=== PATIENT | female | born 1930 | race Caucasian/White ===

== ENCOUNTER 2016-11-15 00:17 | Emergency (ER) | payer OTHER, MEDICARE ==
[2016-11-15 00:47] VITALS: BMI 32.0
--- NOTE | 2016-11-15 01:01 | PDOC ---
History of Present Illness - General History Source: Patient Exam Limitations: No Limitations - History of Present Illness Initial Comments: 11/15/16 01:23 The patient is a 85 year old female brought via EMS and presenting with her daughter, with a significant past medical history of hypothyroidism, hypertension and right breast CA s/p right lumpectomy, who presents to the emergency department with left knee pain and swelling. The patient notes that she has been having trouble bearing weight due to the leg pain. She denies any kind of fall. She describes her leg pain as moderate, without radiation. She notes that moving the extremity or attempting to bear weight on the extremity exacerbates her pain. The patient denies chest pain, shortness of breath, headache and dizziness. Denies fever, chills, nausea, vomit, diarrhea and constipation. Denies dysuria, frequency, urgency and hematuria. Allergies: Penicillin, isela, peaches Past surgical history: Right lumpectomy Social history: No alcohol, tobacco or drug use reported <Mauricio Crockett - Last Filed: 11/15/16 02:07> <Luiz Shelton - Last Filed: 11/15/16 02:20> <Ora Pressley - Last Filed: 11/15/16 06:52> <Yazmin Luis - Last Filed: 11/15/16 10:34> - General Chief Complaint: Pain, Acute Stated Complaint: PAIN Time Seen by Provider: 11/15/16 00:39 Past History <Mauricio Crockett - Last Filed: 11/15/16 02:07> - Past Medical History Cancer: Yes (BREAST, R LUMPECTOMY) HTN: Yes Thyroid Disease: Yes (hypo) - Psycho/Social/Smoking Cessation Hx Anxiety: No Suicidal Ideation: No Smoking History: Never smoked Have you smoked in the past 12 months: No Information on smoking cessation initiated: No Hx Alcohol Use: No Drug/Substance Use Hx: No Substance Use Type: None <Luiz Shelton - Last Filed: 11/15/16 02:20> <Ora Pressley - Last Filed: 11/15/16 06:52> <Yazmin Luis - Last Filed: 11/15/16 10:34> - Past Medical History Allergies/Adverse Reactions: Allergies Allergy/AdvReac Type Severity Reaction Status Date / Time Penicillins Allergy Verified 11/15/16 00:43 nickel [Nickel] AdvReac Mild Rash Unverified 11/15/16 00:43 peniciliin Allergy Intermediate Uncoded 11/15/16 00:43 Peaches AdvReac Mild redness Uncoded 11/15/16 00:43 Face Home Medications: Ambulatory Orders Acetaminophen [Tylenol Extra Strength] 500 mg PO PRN 11/15/16 Amlodipine Besylate [Norvasc -] 2.5 mg PO DAILY 11/15/16 Levothyroxine [Synthroid -] 100 mcg PO DAILY 11/15/16 Nebivolol HCl [Bystolic] 10 mg DAILY 11/15/16 Review of Systems - Review of Systems Able to Perform ROS?: Yes Comments:: 11/15/16 01:23 CONSTITUTIONAL: No fever, no chills, no fatigue EYES: No visual changes ENT: No ear pain, no sore throat CARDIOVASCULAR: No chest pain, no palpitations RESPIRATORY: No cough, no SOB GI: No abdominal pain, no nausea, no vomiting, no constipation, no diarrhea GENITOURINARY: No dysuria, no frequency, no hematuria EXTREMITIES: (+) Left lower extremity pain and swelling. MUSKULOSKELETAL: No backpain, no joint pain, no myalgias SKIN: No rash NEURO: No headache <Mauricio Crockett - Last Filed: 11/15/16 02:07> *Physical Exam - Vital Signs Last Vital Signs Temp Pulse Resp BP Pulse Ox 98.1 F 72 18 187/72 98 11/15/16 00:43 11/15/16 00:43 11/15/16 00:43 11/15/16 00:43 11/15/16 00:43 <Mauricio Crockett - Last Filed: 11/15/16 02:07> - Vital Signs Last Vital Signs Temp Pulse Resp BP Pulse Ox 98.1 F 72 18 187/72 98 11/15/16 00:43 11/15/16 00:43 11/15/16 00:43 11/15/16 00:43 11/15/16 00:43 - Physical Exam Comments: 11/15/16 02:20 EXAMINATION CONSTITUTIONAL: Well-appearing; well-nourished; in no apparent distress HEAD: Normocephalic; atraumatic EYES: PERRL; EOM intact ENMT: External appears normal; normal oropharynx NECK: Supple; non-tender; no cervical lymphadenopathy CARD: Normal S1, S2; no murmurs, rubs, or gallops RESP: Normal chest excursion with respiration; breath sounds clear and equal bilaterally; no wheezes, rhonchi, or rales ABD: Soft, non-distended; non-tender; no palpable organomegaly, no palpable hernias EXT: Left knee: + There is a large suprapatellar effusion as well as mild effusion to the medial and lateral aspect of the knee joint, with tenderness to palpation along the medial and lateral aspects of the knee joint with no laxity with varus/Valgus; anterior drawers is negative; patient is unable to extend or flex the knee joint due to severe pain; there is normal passive range of motion at the left hip and ankle; distal pulses are intact bilaterally; right lower extremity: There is no soft tissue swelling or bony tenderness to palpation; full range of motion at the right hip, right knee and right ankle; SKIN: Warm, dry, no rash NEURO: No focal neurological deficiencies. <Luiz Shelton - Last Filed: 11/15/16 02:20> - Vital Signs Last Vital Signs Temp Pulse Resp BP Pulse Ox 98.1 F 72 18 187/72 98 11/15/16 00:43 11/15/16 00:43 11/15/16 00:43 11/15/16 00:43 11/15/16 00:43 <Ora Pressley - Last Filed: 11/15/16 06:52> - Vital Signs Last Vital Signs Temp Pulse Resp BP Pulse Ox 97.8 F 68 18 129/79 99 11/15/16 06:51 11/15/16 08:43 11/15/16 08:43 11/15/16 08:43 11/15/16 08:43 <Yazmin Luis - Last Filed: 11/15/16 10:34> ED Treatment Course - LABORATORY CBC & Chemistry Diagram: 11/15/16 01:50 11/15/16 01:50 <Mauricio Crockett - Last Filed: 11/15/16 02:07> - LABORATORY CBC & Chemistry Diagram: 11/15/16 01:50 11/15/16 01:50 <Angy Sheltonis - Last Filed: 11/15/16 02:20> - LABORATORY CBC & Chemistry Diagram: 11/15/16 01:50 11/15/16 01:50 - ADDITIONAL ORDERS Additional order review: Laboratory Results 11/15/16 11/15/16 11/15/16 01:50 01:50 01:50 INR 0.93 Sodium 141 Potassium 4.4 Chloride 105 Carbon Dioxide 26 Anion Gap 10 BUN 22 H Creatinine 0.9 D Creat Clearance w eGFR 59.23 Random Glucose 96 Calcium 9.3 Total Bilirubin 0.4 D AST 15 ALT 18 Alkaline Phosphatase 73 D Total Protein 7.7 Albumin 3.7 Blood Type O POSITIVE Antibody Screen Negative 11/15/16 01:50 RBC 4.47 MCV 89.2 MCHC 33.0 RDW 13.8 MPV 8.1 Neutrophils % 52.1 Lymphocytes % 34.4 Monocytes % 10.2 Eosinophils % 2.4 Basophils % 0.9 - Medications Given in the ED: ED Medications Discontinued Medications Generic Name Dose Route Start Last Admin Trade Name Freq PRN Reason Stop Dose Admin Acetaminophen 1,000 mg 11/15/16 01:16 11/15/16 01:58 Ofirmev Injection - IVPB 11/15/16 01:17 1,000 mg ONCE ONE Administration <Ora Pressley - Last Filed: 11/15/16 06:52> - LABORATORY CBC & Chemistry Diagram: 11/15/16 01:50 11/15/16 01:50 - ADDITIONAL ORDERS Additional order review: Laboratory Results 11/15/16 11/15/16 11/15/16 01:50 01:50 01:50 INR 0.93 Sodium 141 Potassium 4.4 Chloride 105 Carbon Dioxide 26 Anion Gap 10 BUN 22 H Creatinine 0.9 D Creat Clearance w eGFR 59.23 Random Glucose 96 Calcium 9.3 Total Bilirubin 0.4 D AST 15 ALT 18 Alkaline Phosphatase 73 D Total Protein 7.7 Albumin 3.7 Blood Type O POSITIVE Antibody Screen Negative 11/15/16 01:50 RBC 4.47 MCV 89.2 MCHC 33.0 RDW 13.8 MPV 8.1 Neutrophils % 52.1 Lymphocytes % 34.4 Monocytes % 10.2 Eosinophils % 2.4 Basophils % 0.9 - Medications Given in the ED: ED Medications Discontinued Medications Generic Name Dose Route Start Last Admin Trade Name Willy PRN Reason Stop Dose Admin Acetaminophen 1,000 mg 11/15/16 01:16 11/15/16 01:58 Ofirmev Injection - IVPB 11/15/16 01:17 1,000 mg ONCE ONE Administration Ketorolac Tromethamine 30 mg 11/15/16 03:26 11/15/16 03:30 Toradol Injection - IVPUSH 11/15/16 03:27 30 mg ONCE ONE Administration Lorazepam 1 mg 11/15/16 06:18 11/15/16 07:07 Ativan Injection - IVPUSH 11/15/16 06:19 1 mg ONCE ONE Administration <Yazmin Luis - Last Filed: 11/15/16 10:34> Medical Decision Making - Medical Decision Making 11/15/16 02:23 Patient is an elderly female who presents with atraumatic pain and swelling to the left knee, with inability to bear weight on the day of arrival. Physical evaluation reveals large suprapatellar effusion and and smaller medial and lateral effusions. Will obtain left knee x-ray as well as left hip and pelvis x -rays to rule out fracture. We'll administer IV Tylenol. Patient will likely require admission for evaluation of knee derangement and inability to ambulate. <Luiz Shelton - Last Filed: 11/15/16 02:20> - Medical Decision Making 11/15/16 06:52 I received patient on signout. She has left knee pain that has left her unable to ambulate. Knee XR shows some fluid in the knee. No fractures. Pt has warmth at the right knee and pain at the right knee, but no systemic fevers and no cellulitis of the right knee. Pt is awaiting CT scan result. She is also awaiting ultrasound this AM to r/o dennis cyst, DVT. She may require admission for inability to ambulate. Or she will require long term care social worker for placement in a rehab center for knee pain and inability to ambulate. She will be signed out to the day ER team. <Ora Pressley - Last Filed: 11/15/16 06:52> - Medical Decision Making 11/15/16 10:33 MicroBlogged Hospitalist. <Yazmin Luis - Last Filed: 11/15/16 10:34> *DC/Admit/Observation/Transfer - Attestations Scribe Attestion: 11/15/16 01:24 Documentation prepared by Mauricio Crockett, acting as chief medical director for Luiz Shelton MD <Mauricio Crockett - Last Filed: 11/15/16 02:07> - Attestations Physician Attestion: 11/15/16 02:20 The documentation was prepared by the scribe under my direct supervision. I have reviewed the documentation which correctly represents the findings, medical decision-making and critical action taken by me. <Luiz Shelton - Last Filed: 11/15/16 02:20> <Ora Pressley - Last Filed: 11/15/16 06:52> - Attestations Scribe Attestion: 11/15/16 10:33 Documentation prepared by Yazmin Luis, acting as chief medical director for Ora Pressley MD. <Yazmin Luis - Last Filed: 11/15/16 10:34> Diagnosis at time of Disposition: Knee arthropathy, Inability to ambulate due to knee - Discharge Dispostion Condition at time of disposition: Guarded - Referrals Referrals: Lux Parekh MD [Primary Care Provider] -
[2016-11-15] MEDS ORDERED: ACETAMINOPHEN 1000 MG/100 ML VIAL (NON FORMULARY) IVPB ONE (01:16)
[2016-11-15 01:58] LABS: BASOPHIL 0.9 % (0-2.0); EOSINOPHIL 2.4 % (0-4.5); MCH 29.4 pg (25.7-33.7); MEAN CELL VOLUME 89.2 fl (80-96); MEAN PLT VOLUME 8.1 fl (7.5-11.1); NEUTROPHILS 52.1 % (42.8-82.8); PLATELET COUNT 217 K/MM3 (134-434); RDW 13.8 % (11.6-15.6); WHITE BLOOD COUNT 8.2 K/mm3 (4.0-10.0)
[2016-11-15] MEDS ORDERED: ACETAMINOPHEN INJECTION 100 ML IVPB ONE (02:00)
[2016-11-15 02:12] LABS: INR 0.93 (0.82-1.09); PROTHROMBIN TIME (PATIENT) 10.2 SEC (9.98-11.88)
[2016-11-15 02:22] LABS: ALBUMIN 3.7 g/dl (3.4-5.0); BILIRUBIN,TOTAL 0.4 mg/dL (0.2-1.0); CALCIUM 9.3 mg/dL (8.5-10.1); COCKROFT - GAULT 55.182; CREATININE 0.9 mg/dL (0.55-1.02); TOT PROT 7.7 g/dl (6.4-8.2)
[2016-11-15] MEDS ORDERED: KETOROLAC TROMETHAMINE 30 MG/1 ML VIAL IVPUSH ONE ×2 (03:26→12:33)
[2016-11-15] MEDS ORDERED: KETOROLAC TROMETHAMINE 30 MG/1 ML VIAL ONE ×2 (03:27→12:36)
[2016-11-15] MEDS ORDERED: LORAZEPAM CARPU-JECT 2 MG/ML DISP.SYRIN IVPUSH ONE (06:18)
[2016-11-15 06:53] VITALS: TEMP 97.8
[2016-11-15] MEDS ORDERED: LORAZEPAM CARPU-JECT 2 MG/ML DISP.SYRIN ONE (06:56)
--- NOTE | 2016-11-15 11:44 | PDOC ---
*Physical Exam - Vital Signs Last Vital Signs Temp Pulse Resp BP Pulse Ox 97.8 F 68 18 129/79 99 11/15/16 06:51 11/15/16 08:43 11/15/16 08:43 11/15/16 08:43 11/15/16 08:43 ED Treatment Course - LABORATORY CBC & Chemistry Diagram: 11/15/16 01:50 11/15/16 01:50 - ADDITIONAL ORDERS Additional order review: Laboratory Results 11/15/16 11/15/16 11/15/16 01:50 01:50 01:50 INR 0.93 Sodium 141 Potassium 4.4 Chloride 105 Carbon Dioxide 26 Anion Gap 10 BUN 22 H Creatinine 0.9 D Creat Clearance w eGFR 59.23 Random Glucose 96 Calcium 9.3 Total Bilirubin 0.4 D AST 15 ALT 18 Alkaline Phosphatase 73 D Total Protein 7.7 Albumin 3.7 Blood Type O POSITIVE Antibody Screen Negative 11/15/16 01:50 RBC 4.47 MCV 89.2 MCHC 33.0 RDW 13.8 MPV 8.1 Neutrophils % 52.1 Lymphocytes % 34.4 Monocytes % 10.2 Eosinophils % 2.4 Basophils % 0.9 - Medications Given in the ED: ED Medications Discontinued Medications Generic Name Dose Route Start Last Admin Trade Name Geronimoq PRN Reason Stop Dose Admin Acetaminophen 1,000 mg 11/15/16 01:16 11/15/16 01:58 Ofirmev Injection - IVPB 11/15/16 01:17 1,000 mg ONCE ONE Administration Ketorolac Tromethamine 30 mg 11/15/16 03:26 11/15/16 03:30 Toradol Injection - IVPUSH 11/15/16 03:27 30 mg ONCE ONE Administration Lorazepam 1 mg 11/15/16 06:18 11/15/16 07:07 Ativan Injection - IVPUSH 11/15/16 06:19 1 mg ONCE ONE Administration Progress Note - Progress Note Progress Note: This patient was endorsed to me at [address] Alejandra pending results of lower extremity ultrasound, CT scan of the knee and reevaluation. Those studies are all negative for acute traumatic injury or any findings. There is a small cyst in the popliteal fossa. I have spoken with the patient and her daughter and have reevaluated the patient personally this morning. The patient was able to ambulate with some assistance but complained of persistent pain. Social work was called for evaluation for surfaces and possible placement. Addendum: NH placement is not a viable option for the family at this time. The plan is to discharge the patient home with Rx for ibuprofen. Will refer to ortho as outpatient. Return to the ED if S xpersist, worsen or new Sx arise. *DC/Admit/Observation/Transfer Diagnosis at time of Disposition: Knee arthropathy, Inability to ambulate due to knee - Discharge Dispostion Disposition: HOME Condition at time of disposition: Stable Admit: No - Referrals Referrals: Lux Parekh MD [Primary Care Provider] - - Patient Instructions Printed Discharge Instructions: DI for Knee Pain Additional Instructions: You may take ibuprofen 600 mg every 6-8 hours as needed for pain in your knee. He may follow-up with Dr. Elliott (orthopedics)call for an appointment at . Return to the emergency department if your symptoms persist, worsen, or new symptoms arise. - Post Discharge Activity
[2016-11-15 13:55] VITALS: BP 153/69; PULSE 69
== END 2016-11-15 13:55 | disposition home or self-care (01) ==
LOC: JER 00:17
PROC: 3E0333Z Introduction of Anti-inflammatory into Peripheral Vein, Percutaneous Approach (ICD-10-PCS; principal; 2016-11-15)
DX: M13.862 Other specified arthritis, left knee (principal); M25.462 Effusion, left knee; R26.2 Difficulty in walking, not elsewhere classified; I10 Essential (primary) hypertension; E03.9 Hypothyroidism, unspecified; Z85.3 Personal history of malignant neoplasm of breast
CPT/HCPCS: 36415; 73523-TC; 73560-TC-LT; 73700-TC-RT; 80053; 85025; 85610; 86850; 86900; 86901; 93971-TC; 96374; 99283-25

== ENCOUNTER 2016-11-17 12:35 | Observation (INO) | payer OTHER, MEDICARE ==
[2016-11-17 12:56] VITALS: BMI 29.6
--- NOTE | 2016-11-17 13:50 | PDOC ---
History of Present Illness - General Chief Complaint: Pain Stated Complaint: LEFT KNEE PAIN X 1 WK Time Seen by Provider: 11/17/16 12:43 History Source: Patient, Family Exam Limitations: No Limitations - History of Present Illness Initial Comments: 11/17/16 13:47 85-year-old female history of thyroid disorder, hypertension, right breast CA status post right lumpectomy presents with persistent left knee pain. Patient was here on November 13 after potentially twisting her left knee. Was noted to have left knee swelling and pain which in ultrasound, x-ray and CAT scan the knee was obtained. Findings found a joint effusion but no other findings. Patient was discharged. However, patient has been unable to actively or bear weight on the left knee. The patient's daughter is having difficulty caring for the patient. Reports that given the persistent pain and difficulty care, patient came to the ED for further evaluation. Past History - Past Medical History Allergies/Adverse Reactions: Allergies Allergy/AdvReac Type Severity Reaction Status Date / Time Penicillins Allergy Verified 11/17/16 12:43 nickel [Nickel] AdvReac Mild Rash Verified 11/17/16 12:43 peniciliin Allergy Intermediate Uncoded 11/17/16 12:43 Peaches AdvReac Mild redness Uncoded 11/17/16 12:43 Face Home Medications: Ambulatory Orders Acetaminophen [Tylenol Extra Strength] 500 mg PO PRN 11/15/16 Amlodipine Besylate [Norvasc -] 2.5 mg PO DAILY 11/15/16 Levothyroxine [Synthroid -] 100 mcg PO DAILY 11/15/16 Nebivolol HCl [Bystolic] 10 mg DAILY 11/15/16 Cancer: Yes (BREAST, R LUMPECTOMY) HTN: Yes Thyroid Disease: Yes (hypo) - Immunization History Immunization Up to Date: Yes - Psycho/Social/Smoking Cessation Hx Anxiety: No Suicidal Ideation: No Smoking History: Never smoked Have you smoked in the past 12 months: No Hx Alcohol Use: Yes (RARE) Drug/Substance Use Hx: No Substance Use Type: None Review of Systems - Review of Systems Able to Perform ROS?: Yes Comments:: 11/17/16 13:50 GENERAL/CONSTITUTIONAL: No fever, weakness. HEAD, EYES, EARS, NOSE AND THROAT: No change in vision. No ear pain or discharge. No sore throat. CARDIOVASCULAR: No chest pain or shortness of breath. RESPIRATORY: No cough, wheezing, or hemoptysis. GASTROINTESTINAL: No abdominal pain, nausea, vomiting, diarrhea, or decreased PO intolerance. GENITOURINARY: No dysuria, frequency, or change in urination. MUSCULOSKELETAL: +left knee pain and swelling SKIN: No rash NEUROLOGIC: No headache, vertigo, loss of consciousness, or change in strength/ sensation. ENDOCRINE: No increased thirst. No abnormal weight change. HEMATOLOGIC/LYMPHATIC: No anemia, easy bleeding, or history of blood clots. ALLERGIC/IMMUNOLOGIC: No hives or skin allergy. *Physical Exam - Vital Signs Last Vital Signs Temp Pulse Resp BP Pulse Ox 97.9 F 63 16 152/65 95 11/17/16 12:42 11/17/16 12:42 11/17/16 12:42 11/17/16 12:42 11/17/16 12:42 - Physical Exam Comments: 11/17/16 13:50 GENERAL: Awake, alert, and fully oriented, in no acute distress. HEAD: No signs of trauma EYES: PERRLA, EOMI, sclera anicteric, conjunctiva clear ENT: Auricles normal inspection, hearing grossly normal, nares patent, oropharynx clear without exudates. NECK: Normal ROM, supple, no lymphadenopathy, JVD, or masses LUNGS: Breath sounds equal, clear to auscultation bilaterally. No wheezes, and no crackles HEART: Regular rate and rhythm, normal S1 and S2, no murmurs, rubs or gallops ABDOMEN: Soft, nontender, normoactive bowel sounds. No guarding, no rebound. No masses EXTREMITIES: Normal range of motion, no edema. No clubbing or cyanosis. No cords, erythema, or tenderness LLE: 2+ DP pulse. sensation intact throughout. Joint effusion appreciated. Able to flex and extend approx 45 degrees without difficult. Not warm or red to touch. Varus and valgus stress negative. Anterior/Posterior drawer test negative. NEUROLOGICAL: Cranial nerves II through XII grossly intact. Normal speech, normal gait SKIN: Warm, Dry, normal turgor, no rashes or lesions noted. Heart Score/ECG Review #1 ECG reviewed & interpreted by me at: 13:50 11/17/16 15:19 NSR 59, TWI III, avF, TWI V3, no std/karma, QTC 437 msec ED Treatment Course - LABORATORY CBC & Chemistry Diagram: 11/17/16 13:45 11/17/16 13:45 Medical Decision Making - Medical Decision Making 11/17/16 13:52 Vital Signs Temp Pulse Resp BP Pulse Ox 97.9 F 63 16 152/65 95 11/17/16 12:42 11/17/16 12:42 11/17/16 12:42 11/17/16 12:42 11/17/16 12:42 Pt unable to bear weight. Patient will be unable to care at home without support. Will need admission for PT, ortho and possible SNF evaluation. 11/17/16 15:25 CBC, BMP 11/17/16 13:45 11/17/16 13:45 CMP Sodium 138 mmol/L (136-145) 11/17/16 13:45 Potassium 4.6 mmol/L (3.5-5.1) 11/17/16 13:45 Chloride 106 mmol/L (98-107) 11/17/16 13:45 Carbon Dioxide 24 mmol/L (22-28) 11/17/16 13:45 Anion Gap 8 (8-16) 11/17/16 13:45 BUN 20 mg/dl (7-18) H D 11/17/16 13:45 Creatinine 0.8 mg/dl (0.6-1.3) 11/17/16 13:45 Creat Clearance w eGFR > 60 (>60) 11/17/16 13:45 Random Glucose 90 mg/dl (74-106) 11/17/16 13:45 Calcium 9.3 mg/dl (8.4-10.2) 11/17/16 13:45 Total Bilirubin 0.4 mg/dl (0.2-1.0) D 11/17/16 13:45 AST 19 U/L (10-42) 11/17/16 13:45 ALT 12 U/L (10-40) 11/17/16 13:45 Alkaline Phosphatase 49 U/L (32-92) 11/17/16 13:45 Total Protein 7.5 g/dl (6.4-8.3) 11/17/16 13:45 Albumin 3.8 g/dl (3.5-5.0) 11/17/16 13:[address] Parekh. He agrees that the patient needs ortho, and PT evaluation. Case discussed with DR. Ortega. She accepts the patient to med/surg obs to her service. Case discussed in detail with admitting physician including history, physical exam and ancillary studies. Admitting physician has assumed care for the patient, will follow all pending diagnostics and will complete the evaluation and treatment. *DC/Admit/Observation/Transfer Diagnosis at time of Disposition: Inability to ambulate due to knee - Discharge Dispostion Condition at time of disposition: Stable Admit: Yes
[2016-11-17 13:56] LABS: BASOPHIL 1.2 % (0-2.0); EOSINOPHIL 3.6 % (0-4.5); MCH 29.9 pg (25.7-33.7); MCHC 33.9 g/dl (32.0-36.0); MEAN CELL VOLUME 88.3 fl (80-96); MEAN PLT VOLUME 7.9 fl (7.5-11.1); NEUTROPHILS 57.5 % (42.8-82.8); PLATELET COUNT 250 K/MM3 (134-434); RDW 13.3 % (11.6-15.6); WHITE BLOOD COUNT 8.8 K/mm3 (4.0-10.8)
[2016-11-17 15:09] LABS: ALBUMIN 3.8 g/dl (3.5-5.0); ALK PHOS 49 U/L (32-92); ANION GAP 8 (8-16); BILIRUBIN,TOTAL 0.4 mg/dl (0.2-1.0); CALCIUM 9.3 mg/dl (8.4-10.2); CO2 24 mmol/L (22-28); COCKROFT - GAULT 57.4685; CREATININE 0.8 mg/dl (0.6-1.3); GLUCOSE,RANDOM 90 mg/dl (74-106); SGOT/AST 19 U/L (10-42); SGPT/ALT 12 U/L (10-40); TOT PROT 7.5 g/dl (6.4-8.3)
[2016-11-17 16:31] LABS: PH,URINE 5.5 (4.5-8); URINE APPEARANCE Clear; URINE BILIRUBIN Negative (NEGATIVE); URINE BLOOD Trace-intact (NEGATIVE); URINE GLUCOSE (UA) Negative (NEGATIVE); URINE KETONE Trace (NEGATIVE); URINE LEUK ESTERASE Negative (NEGATIVE); URINE NITRITE Negative (NEGATIVE); URINE PROTEIN Negative (NEGATIVE); URINE UROBILINOGEN 0.2 E.U/dl (0.2-1.0)
[2016-11-17 16:45] LABS: URINE COLOR YELLOW
[2016-11-17] MEDS ORDERED: ACETAMINOPHEN 325 MG TABLET (FP) PO PRN (21:37)
[2016-11-17] MEDS ORDERED: ARTIFICIAL TEARS (POLYVINYL ALCOHOL 1.4%) OPTH DROPS OU PRN (21:38)
--- NOTE | 2016-11-17 21:43 | HP ---
CHIEF COMPLAINT: knee pain PCP: Dr. Parekh HISTORY OF PRESENT ILLNESS: This is a 85 year old female with a past medical history of HTN, hypothyroid, R breast CA s/p lumpectomy presented with left knee pain. Pt presented to the ED on 11/15/16 with same complaint. Pt reports she was in her kitchen and went to turn around, twisting her left leg with sudden onset of pain persisting since. Pt underwent L hip/pelvis and knee xrays without fracture. CT left knee without fracture, + suprapatellar effusion. US negative for DVT. Pt has been unable to weight bear since event and daughter unable to manage mother at home. Recent Travel: pt denies PAST MEDICAL HISTORY: HTN hypothyroid R breast CA PAST SURGICAL HISTORY: R breast lumpectomy D&C many years ago Social History: Smokin pack year history when her daughter was small Alcohol: pt denies Drugs: pt denies Family History: mother age 60s with CA, unknown type father age 41 with PNA sister age 41, colon CA brother late 70s, respiratory illness sister age 95, old age Allergies cortisone Allergy (Intermediate, Verified 11/17/16 20:29) Swelling Penicillins Allergy (Verified 11/17/16 12:43) nickel [Nickel] Adverse Reaction (Mild, Verified 11/17/16 12:43) Rash peniciliin Allergy (Intermediate, Uncoded 11/17/16 12:43) Peaches Adverse Reaction (Mild, Uncoded 11/17/16 12:43) redness Face HOME MEDICATIONS: 3 Medication Instructions Recorded Acetaminophen [Tylenol Extra 500 mg PO PRN 11/15/16 Strength] Amlodipine Besylate [Norvasc -] 2.5 mg PO DAILY 11/15/16 Levothyroxine [Synthroid -] 100 mcg PO DAILY 11/15/16 Nebivolol HCl [Bystolic] 10 mg DAILY 11/15/16 REVIEW OF SYSTEMS CONSTITUTIONAL: Absent: fever, chills, diaphoresis, generalized weakness, malaise, loss of appetite, weight change HEENT: Absent: rhinorrhea, nasal congestion, throat pain, throat swelling, difficulty swallowing, mouth swelling, ear pain, eye pain, visual changes CARDIOVASCULAR: Absent: chest pain, syncope, palpitations, irregular heart rate, lightheadedness , peripheral edema RESPIRATORY: Absent: cough, shortness of breath, dyspnea with exertion, orthopnea, wheezing, stridor, hemoptysis GASTROINTESTINAL: Absent: abdominal pain, abdominal distension, nausea, vomiting, diarrhea, constipation, melena, hematochezia GENITOURINARY: Absent: dysuria, frequency, urgency, hesitancy, hematuria, flank pain, genital pain MUSCULOSKELETAL: Present: L knee pain Absent: myalgia, arthralgia, joint swelling, back pain, neck pain SKIN: Absent: rash, itching, pallor HEMATOLOGIC/IMMUNOLOGIC: Absent: easy bleeding, easy bruising, lymphadenopathy, frequent infections ENDOCRINE: Absent: unexplained weight gain, unexplained weight loss, heat intolerance, cold intolerance NEUROLOGIC: Absent: headache, focal weakness or paresthesias, dizziness, unsteady gait, seizure, mental status changes, bladder or bowel incontinence PSYCHIATRIC: Absent: anxiety, depression, suicidal or homicidal ideation, hallucinations. PHYSICAL EXAMINATION Vital Signs - 24 hr 3 11/17/16 11/17/16 11/17/16 12:42 18:23 18:48 Temperature 97.9 F 98.3 F 98.3 F Pulse Rate 63 66 66 Respiratory 16 18 Rate Blood Pressure 152/65 166/50 O2 Sat by Pulse 95 97 Oximetry (%) GENERAL: Awake, alert, and fully oriented, in no acute distress. HEAD: Normal with no signs of trauma. EYES: Pupils equal, round and reactive to light, extraocular movements intact, sclera anicteric, conjunctiva clear. No lid lag. EARS, NOSE, THROAT: Ears normal, nares patent, oropharynx clear without exudates. Moist mucous membranes. NECK: Normal range of motion, supple without lymphadenopathy, JVD, or masses. LUNGS: Breath sounds equal, clear to auscultation bilaterally. No wheezes, and no crackles. No accessory muscle use. HEART: Regular rate and rhythm, normal S1 and S2 without murmur, rub or gallop. ABDOMEN: Soft, nontender, not distended, normoactive bowel sounds, no guarding, no rebound, no masses. No hepatomegaly or splenomegaly. MUSCULOSKELETAL: Normal range of motion at all joints except left knee. No bony deformities or tenderness. No CVA tenderness. Left knee pain with flexion and extension, position of comfort slightly flexed. no pain on pelvis rock, hip flexion. UPPER EXTREMITIES: 2+ pulses, warm, well-perfused. No cyanosis. No clubbing. No peripheral edema. LOWER EXTREMITIES: 2+ pulses, warm, well-perfused. No calf tenderness. No peripheral edema. NEUROLOGICAL: Cranial nerves II-XII intact. Normal speech. Normal gait. PSYCHIATRIC: Cooperative. Good eye contact. Appropriate mood and affect. SKIN: Warm, dry, normal turgor, no rashes or lesions noted, normal capillary refill. Laboratory Results - last 24 hr 3 11/17/16 11/17/16 11/17/16 13:45 13:45 15:55 WBC 8.8 RBC 4.78 Hgb 14.3 Hct 42.2 MCV 88.3 MCHC 33.9 RDW 13.3 Plt Count 250 MPV 7.9 Neutrophils % 57.5 Lymphocytes % 28.8 Monocytes % 8.9 Eosinophils % 3.6 Basophils % 1.2 Sodium 138 Potassium 4.6 Chloride 106 Carbon Dioxide 24 Anion Gap 8 BUN 20 H D Creatinine 0.8 Creat Clearance w eGFR > 60 Random Glucose 90 Calcium 9.3 Total Bilirubin 0.4 D AST 19 ALT 12 Alkaline Phosphatase 49 Total Protein 7.5 Albumin 3.8 Urine Color Yellow Urine Appearance Clear Urine pH 5.5 Ur Specific [place] 1.020 Urine Protein Negative Urine Glucose (UA) Negative Urine Ketones Trace Urine Blood Trace-intact Urine Nitrite Negative Urine Bilirubin Negative Urine Urobilinogen 0.2 e.u/dl Ur Leukocyte Esterase Negative Imagin11/17/16: RAD/CHEST X-RAY PORTABLE* Preadmission Portable chest x-ray AP sitting. Since prior chest x-ray dated 02/12/2009, the cardiac silhouette remains within normal limits in size. Mild perihilar increased lung markings are present. There is moderate elevation of the right hemidiaphragm. Mediastinum and visualized osseous structures appear intact Impression: No significant interval change or acute lung disease is present. 11/15/16: US/DUPLEX VASCUL US-1 LEG HISTORY PROVIDED: Pain and swelling left lower extremity. Real time and doppler evaluation of the left lower extremity demonstrates the following: There is no evidence of deep venous thrombosis within the common, deep and superficial femoral veins, as well as the popliteal and posterior tibial veins. The greater saphenous vein is also patent. These veins are fully compressible, as well. IMPRESSION: No evidence of deep venous thrombosis. 11/15/16: CT/LOWER EXTREMITY CT W/O CONTR History provided: Knee pain. Sequential axial images were obtained through the left knee. Coronal and sagittal reconstructed images were also obtained. There is no evidence of fracture, dislocation or acute bone or joint abnormalities. There are mild degenerative arthritic changes noted with the knee joint well maintained. A small suprapatellar effusion is also noted. IMPRESSION: Mild degenerative arthritis with small suprapatellar effusion. There is no evidence of fracture, dislocation or acute bone or joint abnormalities. 11/15/16: RAD/HIP PELVIS-LEFT Pelvis and left hip: Pain. There is no history of trauma given. An AP view the pelvis and images of the left hip reveal no sign of acute fracture subluxation. The hips appear symmetrical. There is a nonspecific bowel pattern. There are pelvic vascular calcifications. If symptoms persist or there is decreased range of motion then further imaging and orthopedic consultation may be of help. Impression: No acute pathology. 11/15/16: RAD/KNEE 2 POS-LEFT Left knee: Pain. AP and lateral views reveal a small joint effusion, degenerative changes but no sign of fracture or subluxation. Blastic or lytic changes are not seen. If symptoms persist, further imaging may be of help. Impression : Joint effusion. No acute fracture appreciated. ASSESSMENT/PLAN: 85yF with PMH HTN, hypothyroid, R breast CA presented with L knee pain, unable to walk. She is being admitted for further observation. L knee osteoarthritis with severe pain - xray and CT neg for fracture - ortho consult placed - tylenol for pain - PT eval - case management eval for potential placement HTN - cont home medications, monitor BP and adjust accordingly Hypothyroid - cont home synthroid DVT PPX - heparin 5000u TID FEN - tolerating po fluids - repeat BMP - low sodium diet Dispo: Pt currently requires inpatient observation for management of her emergent condition. Visit type - Emergency Visit Emergency Visit: Yes ED Registration Date: 11/17/16 Care time: The patient presented to the Emergency Department on the above date and was hospitalized for further evaluation of their emergent condition. - New Patient This patient is new to me today: Yes Date on this admission: 11/17/16 - Critical Care Critical Care patient: No
[2016-11-17] MEDS: amLODIPine BESYLATE 2.5 MG TABLET (FP) PO SCH (22:24)
[2016-11-18] MEDS: LEVOTHYROXINE NA 100 MCG TABLET (FP) PO SCH (06:23)
--- NOTE | 2016-11-18 09:03 | PN ---
Physical Exam: SUBJECTIVE: Patient seen and examined, reports pain to the left knee upon movement. OBJECTIVE: patient is a 85 year old female with a past medical history of HTN, hypothyroid, R breast CA s/p lumpectomy. patient was admitted from the emergency department to observation for left knee pain and the inability to ambulate. Vital Signs Period Temp Pulse Resp BP Sys/Garcia Pulse Ox Last 24 Hr 97.4 F-99.4 F 63-66 18-20 135-173/50-76 97-98 GENERAL: The patient is awake, alert, and fully oriented, in no acute distress. HEAD: Normal with no signs of trauma. EYES: PERRL, extraocular movements intact, sclera anicteric, conjunctiva clear. No ptosis. ENT: Ears normal, nares patent, oropharynx clear without exudates, moist mucous membranes. NECK: Trachea midline, full range of motion, supple. LUNGS: Breath sounds equal, clear to auscultation bilaterally, no wheezes, no crackles, no accessory muscle use. HEART: Regular rate and rhythm, S1, S2 without murmur, rub or gallop. ABDOMEN: Soft, nontender, nondistended, normoactive bowel sounds, no guarding, no rebound, no hepatosplenomegaly, no masses. EXTREMITIES: 2+ pulses, warm, well-perfused, no edema. multiple varicosities noted LEFT LOWER EXTREMITY: pain upon flexion and extension of left knee, +amanda' s test NEUROLOGICAL: Cranial nerves II through XII grossly intact. Normal speech, gait not observed. PSYCH: Normal mood, normal affect. SKIN: Warm, dry, normal turgor, no rashes or lesions noted Active Medications Generic Name Dose Route Start Last Admin Trade Name Freq PRN Reason Stop Dose Admin Acetaminophen 650 mg 11/17/16 21:37 11/17/16 22:24 Tylenol - PO 650 mg Q6H PRN Administration FEVER OR PAIN Amlodipine Besylate 2.5 mg 11/17/16 22:00 11/17/16 22:24 Norvasc - PO 2.5 mg HS ANAI Administration Artificial Tears 1 drop 11/17/16 21:38 Artificial Tears OU QID PRN DRY EYES Heparin Sodium (Porcine) 5,000 unit 11/18/16 22:00 Heparin - SQ TID ANAI Levothyroxine Sodium 100 mcg 11/18/16 07:00 11/18/16 06:23 Synthroid - PO 100 mcg DAILY@0700 ANAI Administration Methyl Salicylate 1 applic 11/18/16 10:00 Andrzej-Rivas - TP BID ANAI Nebivolol 10 mg 11/18/16 10:00 Bystolic - PO DAILY ANAI IMAGING 11/15/16: US/DUPLEX VASCUL US-1 LEG HISTORY PROVIDED: IMPRESSION: No evidence of deep venous thrombosis. 11/15/16: CT/LOWER EXTREMITY CT W/O CONTR IMPRESSION: Mild degenerative arthritis with small suprapatellar effusion. There is no evidence of fracture, dislocation or acute bone or joint abnormalities. 11/15/16: RAD/HIP PELVIS-LEFT Pelvis and left hip: Impression: No acute pathology. 11/15/16: RAD/KNEE 2 POS-LEFT Left knee: Impression : Joint effusion. No acute fracture appreciated. 11/17/16: RAD/CHEST X-RAY PORTABLE* Impression: No significant interval change or acute lung disease is present. ASSESSMENT/PLAN: 1)L knee osteoarthritis with severe pain - pending ortho consult - pt eval - continue prn tylenol 2) HTN - continue norvasc, home dose - b/p at goal 3) Hypothyroid - continue synthroid F/E/N - low sodium diet - replete lytes prn PPX - heparin sq tid - pt eval - scd/cooper Dispo: Pt currently requires inpatient observation for management of her emergent condition. Visit type - Emergency Visit Emergency Visit: Yes ED Registration Date: 11/17/16 Care time: The patient presented to the Emergency Department on the above date and was hospitalized for further evaluation of their emergent condition. - New Patient This patient is new to me today: Yes Date on this admission: 11/18/16 - Critical Care Critical Care patient: No - Discharge Referral Referred to [facility] Med P.C.: No
--- NOTE | 2016-11-18 09:04 | EKG ---
Test Reason : Blood Pressure : / mmHG Vent. Rate : 059 BPM Atrial Rate : 059 BPM P-R Int : 172 ms QRS Dur : 084 ms QT Int : 442 ms P-R-T Axes : 022 -13 -21 degrees QTc Int : 437 ms SINUS BRADYCARDIA CANNOT RULE OUT ANTERIOR INFARCT , AGE UNDETERMINED NONSPECIFIC T WAVE ABNORMALITY WHEN COMPARED WITH ECG OF 12-FEB-2007 07:34, T WAVE INVERSION NOW EVIDENT IN INFERIOR LEADS T WAVE INVERSION NO LONGER EVIDENT IN ANTERIOR LEADS QT HAS SHORTENED Confirmed by MD ARLENE, IZAIAH ([id number]) on 11/18/2016 9:04:32 AM Referred By: JORDAN Confirmed By:IZAIAH JACOBS MD
[2016-11-18] MEDS ORDERED: PT OWN MED DRAWER 7, Y5N ONE ×2 (09:19→21:09)
[2016-11-18] MEDS: METHYL SALICYLATE/MENTHOL OINT 30 GM TUBE TP SCH ×2 (09:25→21:21)
[2016-11-18] MEDS ORDERED: amLODIPine BESYLATE 2.5 MG TABLET (FP) PO SCH (10:00)
[2016-11-18] MEDS: NEBIVOLOL 10 MG TABLET (FP) PO SCH (10:00)
[2016-11-18] MEDS ORDERED: KETOROLAC TROMETHAMINE 30 MG/1 ML VIAL IVPB ONE (11:41)
--- NOTE | 2016-11-18 11:50 | CONSULT ---
Consult Reason for Consultation:: Left knee - History of Present Illness Chief Complaint: Left knee pain 1 month History of Present Illness: 85-year-old female complains of left knee pain for approximately 1 month. She states over the past few weeks this pain is worse and a few days ago she twisted the knee and was having a lot of pain and can barely walk. she went to the emergency room and had x-rays and CAT scan of the knee and was feeling better and was discharged home. She is feeling a little better the past few days but the pain got worse again yesterday and she went back to the emergency room and was admitted. Today the knee is feeling a little better and she was able to walk the hallway and back with a walker and help of the physical therapist. She did have a similar problem with right knee a few years ago which eventually resolved after a few weeks. She has not been taking any anti- inflammatories for the knee.There are no other associated, aggravating or relieving factors. - History Source History Provided By: Patient, Family Member, Medical Record Limitations to Obtaining History: No Limitations - Past Medical History Cardio/Vascular: Yes: HTN, Hyperlipdemia Gastrointestinal: Yes: Other (Dysphagia, being worked up by GI.) ...: No Musculoskeletal: Yes: Osteoarthritis Endocrine: Yes: Hypothyroidism - Past Surgical History Past Surgical History: Yes: Breast Biopsy (History of right breast carcinome in 1995 treated with lumpectomy, radiotherapy and Tamoxiphen) - Alcohol/Substance Use Hx Alcohol Use: Yes (RARE) - Smoking History Smoking history: Never smoked Have you smoked in the past 12 months: No - Social History ADL: Independent History of Recent Travel: No Home Medications - Allergies Allergies/Adverse Reactions: Allergies Allergy/AdvReac Type Severity Reaction Status Date / Time cortisone Allergy Intermediate Swelling Verified 11/17/16 20:29 Penicillins Allergy Verified 11/17/16 12:43 nickel [Nickel] AdvReac Mild Rash Verified 11/17/16 12:43 peniciliin Allergy Intermediate Uncoded 11/17/16 12:43 Peaches AdvReac Mild redness Uncoded 11/17/16 12:43 Face - Home Medications Home Medications: Ambulatory Orders Acetaminophen [Tylenol Extra Strength] 500 mg PO PRN 11/15/16 Amlodipine Besylate [Norvasc -] 2.5 mg PO DAILY 11/15/16 Levothyroxine [Synthroid -] 100 mcg PO DAILY 11/15/16 Nebivolol HCl [Bystolic] 10 mg DAILY 11/15/16 Family Disease History - Family Disease History Family Disease History: Diabetes: Brother, CA: Sister (Colon cancer) Review of Systems - Review of Systems Constitutional: reports: No Symptoms Eyes: reports: No Symptoms HENT: reports: No Symptoms Neck: reports: No Symptoms Cardiovascular: reports: No Symptoms Respiratory: reports: No Symptoms Gastrointestinal: reports: No Symptoms Genitourinary: reports: No Symptoms Breasts: reports: No Symptoms Reported Musculoskeletal: reports: No Symptoms Integumentary: reports: No Symptoms Neurological: reports: No Symptoms Endocrine: reports: No Symptoms Hematology/Lymphatic: reports: No Symptoms Psychiatric: reports: No Symptoms Physical Exam Vital Signs: Vital Signs Temperature 99.4 F 11/18/16 06:00 Pulse Rate 63 11/18/16 06:00 Respiratory Rate 20 11/18/16 06:00 Blood Pressure 135/76 11/18/16 06:00 O2 Sat by Pulse Oximetry (%) 98 11/18/16 06:00 Constitutional: Yes: Well Nourished, No Distress, Calm HENT: Yes: Atraumatic, Normocephalic Musculoskeletal: Yes: Other (Left knee: No open wounds. Moderate joint effusion. No erythema or ecchymosis. Mild diffuse tenderness over the medial lateral joint spaces. No other areas of tenderness. Range of motion of the knee is 10 to 90. quadriceps is intact. Calf nontender. Negative Homans sign. Compartments soft.) Imaging - Results X-ray: Report Reviewed, Image Reviewed Cat Scan: Report Reviewed, Image Reviewed (Severe degenerative changes. No fractures or dislocations) Assessment/Plan #1 left knee pain Discussed today's findings and treatment options with the patient. The knee is feeling a little better today and I recommended starting a course of oral anti- inflammatories as well as a supportive wrap for the knee. I have recommended an NSAID with an antacid to minimize gastric irritation. We have discussed the possibility of doing a cortisone injection but she would like to hold off for now. Follow-up with Dr. Barreto/Dr. Weinberg in 1 week as outpatient. She will also rest and ice the knee.
[2016-11-18] MEDS: RANITIDINE HCL 150 MG TABLET (FP) PO SCH ×2 (12:45→21:20)
[2016-11-18] MEDS: NAPROXEN 500 MG TABLET (FP) PO SCH (21:20)
[2016-11-18] MEDS: HEPARIN NA (PORCINE) 5,000 UNITS/ML 1ML VIAL SQ SCH (21:20)
[2016-11-18] MEDS: amLODIPine BESYLATE 2.5 MG TABLET (FP) PO SCH (21:21)
[2016-11-19] MEDS: LEVOTHYROXINE NA 100 MCG TABLET (FP) PO SCH (06:42)
[2016-11-19] MEDS: HEPARIN NA (PORCINE) 5,000 UNITS/ML 1ML VIAL SQ SCH (06:42)
--- NOTE | 2016-11-19 09:24 | DS ---
Physical Exam: SUBJECTIVE: Patient seen and examined, patient reports feeling better, reports pain improved after starting naproxyn. OBJECTIVE: patient is a 85 year old female with a past medical history of HTN, hypothyroid, R breast CA s/p lumpectomy presented with left knee pain. Pt presented to the ED on 11/15/16 with same complaint. Pt reports she was in her kitchen and went to turn around, twisting her left leg with sudden onset of pain persisting since. Pt underwent L hip/pelvis and knee xrays without fracture. CT left knee without fracture, + suprapatellar effusion. US negative for DVT. Pt has been unable to weight bear since event and daughter unable to manage mother at home. Vital Signs Period Temp Pulse Resp BP Sys/Garcia Pulse Ox Last 24 Hr 97.6 F-98.8 F 60-64 16-19 127-158/59-63 97-98 PHYSICAL EXAM GENERAL: The patient is awake, alert, and fully oriented, in no acute distress. HEAD: Normal with no signs of trauma. EYES: PERRL, extraocular movements intact, sclera anicteric, conjunctiva clear. No ptosis. ENT: Ears normal, nares patent, oropharynx clear without exudates, moist mucous membranes. NECK: Trachea midline, full range of motion, supple. LUNGS: Breath sounds equal, clear to auscultation bilaterally, no wheezes, no crackles, no accessory muscle use. HEART: Regular rate and rhythm, S1, S2 without murmur, rub or gallop. ABDOMEN: Soft, nontender, nondistended, normoactive bowel sounds, no guarding, no rebound, no hepatosplenomegaly, no masses. EXTREMITIES: 2+ pulses, warm, well-perfused, no edema. multiple varicosities noted LEFT LOWER EXTREMITY: pain upon flexion and extension of left knee, +amanda' s test NEUROLOGICAL: Cranial nerves II through XII grossly intact. Normal speech, gait not observed. PSYCH: Normal mood, normal affect. SKIN: Warm, dry, normal turgor, no rashes or lesions noted LABS CBC WBC 8.8 K/mm3 (4.0-10.8) 11/17/16 13:45 RBC 4.78 M/mm3 (3.60-5.2) 11/17/16 13:45 Hgb 14.3 GM/dl (10.7-15.3) 11/17/16 13:45 Hct 42.2 % (32.4-45.2) 11/17/16 13:45 MCV 88.3 fl (80-96) 11/17/16 13:45 MCHC 33.9 g/dl (32.0-36.0) 11/17/16 13:45 RDW 13.3 % (11.6-15.6) 11/17/16 13:45 Plt Count 250 K/MM3 (134-434) 11/17/16 13:45 MPV 7.9 fl (7.5-11.1) 11/17/16 13:45 Neutrophils % 57.5 % (42.8-82.8) 11/17/16 13:45 Lymphocytes % 28.8 % (8-40) 11/17/16 13:45 Monocytes % 8.9 % (3.8-10.2) 11/17/16 13:45 Eosinophils % 3.6 % (0-4.5) 11/17/16 13:45 Basophils % 1.2 % (0-2.0) 11/17/16 13:45 CMP Sodium 138 mmol/L (136-145) 11/17/16 13:45 Potassium 4.6 mmol/L (3.5-5.1) 11/17/16 13:45 Chloride 106 mmol/L (98-107) 11/17/16 13:45 Carbon Dioxide 24 mmol/L (22-28) 11/17/16 13:45 Anion Gap 8 (8-16) 11/17/16 13:45 BUN 20 mg/dl (7-18) H D 11/17/16 13:45 Creatinine 0.8 mg/dl (0.6-1.3) 11/17/16 13:45 Creat Clearance w eGFR > 60 (>60) 11/17/16 13:45 Random Glucose 90 mg/dl (74-106) 11/17/16 13:45 Calcium 9.3 mg/dl (8.4-10.2) 11/17/16 13:45 Total Bilirubin 0.4 mg/dl (0.2-1.0) D 11/17/16 13:45 AST 19 U/L (10-42) 11/17/16 13:45 ALT 12 U/L (10-40) 11/17/16 13:45 Alkaline Phosphatase 49 U/L (32-92) 11/17/16 13:45 Total Protein 7.5 g/dl (6.4-8.3) 11/17/16 13:45 Albumin 3.8 g/dl (3.5-5.0) 11/17/16 13:45 IMAGING 11/15/16: US/DUPLEX VASCUL US-1 LEG HISTORY PROVIDED: IMPRESSION: No evidence of deep venous thrombosis. 11/15/16: CT/LOWER EXTREMITY CT W/O CONTR IMPRESSION: Mild degenerative arthritis with small suprapatellar effusion. There is no evidence of fracture, dislocation or acute bone or joint abnormalities. 11/15/16: RAD/HIP PELVIS-LEFT Pelvis and left hip: Impression: No acute pathology. 11/15/16: RAD/KNEE 2 POS-LEFT Left knee: Impression : Joint effusion. No acute fracture appreciated. 11/17/16: RAD/CHEST X-RAY PORTABLE* Impression: No significant interval change or acute lung disease is present. HOSPITAL COURSE: patient was admitted from the emergency department for left knee osteoarthritis with severe pain. She was evaluated by orthopedist. patient did decline cortisone injection. She was started on NSAIDS as per the recommendation of the orthopedist. Patient was evaluated by physical therapy, patient can ambulate with the assistance of a rolling walker and one person. patient has a past medical history of hypertension and norvasc was continued home dose. She has a past medical history of hypothyroidism and synthroid was continued at home dose. Date of Admission:11/17/16 Date of Discharge: 11/19/16 Minutes to complete discharge: 45 Discharge Summary Reason For Visit: LEFT KNEE PAIN Current Active Problems Advanced directives, counseling/discussion (Acute) Constipation (Acute) DVT prophylaxis (Acute) Dysphagia (Acute) Hypertension (Acute) Hypothyroidism (Acute) Inability to ambulate due to knee (Acute) Osteoarthritis (Acute) Polymyalgia rheumatica (Acute) Condition: Improved - Instructions Diet, Activity, Other Instructions: resume regular low sodium diet continue naporxyn for pain as needed please take naproxyn with food continue taking zantac while taking naproxyn continue all medications as prescribed use merissa bandage to left knee, while awake please follow up with the orthopedist within 1 week Referrals: Lux Parekh MD [Primary Care Provider] - Disposition: VNS/HOME HEALTH CARE - Home Medications Comprehensive Discharge Medication List: Ambulatory Orders Acetaminophen [Tylenol Extra Strength] 500 mg PO PRN 11/15/16 Amlodipine Besylate [Norvasc -] 2.5 mg PO DAILY 11/15/16 Levothyroxine [Synthroid -] 100 mcg PO DAILY 11/15/16 Nebivolol HCl [Bystolic] 10 mg DAILY 11/15/16 This patient is new to me today: No Emergency Visit: Yes ED Registration Date: 11/17/16 Care time: The patient presented to the Emergency Department on the above date and was hospitalized for further evaluation of their emergent condition. Critical Care patient: No - Discharge Referral Referred to [facility] Med P.C.: Yes Physician Referral: Lux Parekh MD (Int Med)
[2016-11-19 09:55] VITALS: BP 155/57; PULSE 66; TEMP 98.9
[2016-11-19] MEDS ORDERED: PT OWN MED DRAWER 7, Y5N ONE (09:59)
[2016-11-19] MEDS: NEBIVOLOL 10 MG TABLET (FP) PO SCH (10:07)
[2016-11-19] MEDS: RANITIDINE HCL 150 MG TABLET (FP) PO SCH (10:07)
[2016-11-19] MEDS: METHYL SALICYLATE/MENTHOL OINT 30 GM TUBE TP SCH (10:07)
[2016-11-19] MEDS: NAPROXEN 500 MG TABLET (FP) PO SCH (10:07)
== END 2016-11-19 13:01 | disposition home health service (06) ==
LOC: FER 12:35 → FM/S 17:22
PROVIDERS: ADMIT Internal Medicine; ATTEND Nurse Practitioner Family
PROC: 3E0333Z Introduction of Anti-inflammatory into Peripheral Vein, Percutaneous Approach (ICD-10-PCS; principal; 2016-11-17)
PROC: 3E013GC Introduction of Other Therapeutic Substance into Subcutaneous Tissue, Percutaneous Approach (ICD-10-PCS; 2016-11-17)
DX: M17.12 Unilateral primary osteoarthritis, left knee (principal); R26.2 Difficulty in walking, not elsewhere classified; K57.00 Diverticulitis of small intestine with perforation and abscess without bleeding; R13.10 Dysphagia, unspecified; I10 Essential (primary) hypertension; E03.9 Hypothyroidism, unspecified; Z85.3 Personal history of malignant neoplasm of breast; M35.3 Polymyalgia rheumatica
CPT/HCPCS: 36415; 71010-TC; 80053; 81003; 85025; 87086; 93005; 97116-GP; 97162-GP; 99283-25; G0378; J1644

== ENCOUNTER 2018-06-15 15:27 | Inpatient (IN) | payer OTHER, MEDICARE ==
--- NOTE | 2018-06-15 16:06 | PDOC ---
Attending Attestation - Resident Resident Name: Brandon Hewitt - ED Attending Attestation I have performed the following: I have examined & evaluated the patient, The case was reviewed & discussed with the resident, I agree w/resident's findings & plan, Exceptions are as noted - HPI HPI: 06/15/18 16:43 87y F hx of hypothyroidism, hypertension presents with possible syncope. The patients states she woke up feeling fine this morning, sometime after 1pm (when her doughter left) she started feeling genearlized weakenss. she somehow ended up on the floor - does not recall specifically if she laid down. denies any associated cp, palpitations, ligheahdedess, cough, sob, hemoptysis,, increased leg swelling,a bd pain, back pain. She called EMS herself who sent her to the ED. pt thinks she was down approx 1 hr but is uncertain. currently she is endorsing a mild headche, also endorses slight R arm discomfort. USOH this mrara, ambulating to the restroom, felt like she was going to fall so she sat down slowly denies any lightheadedness, vertigo, cp, sob, palpitations, n/v, nmnbess/ tingling/weakness. f/c, cough, diarrhea, melena/bpr, pt notse mild headache PMD Fader - Physicial Exam PE: 06/15/18 18:00 GENERAL: The patient is awake, alert, and fully oriented, Nontoxic - in no acute distress. HEAD: Normocephalic, atraumatic. EYES: extraocular movements intact, sclera anicteric, conjunctiva clear. ENT: Normal voice, Moist mucous membranes. NECK: Normal range of motion, supple LUNGS: Breath sounds equal, clear to auscultation bilaterally. No wheezes, no rhonchi, no rales. HEART: Regular rate and rhythm, normal S1 and S2 without murmur, rub or gallop. ABDOMEN: Soft, nontender No guarding, no rebound. . No CVA tenderness EXTREMITIES: Normal range of motion of UE, LE b/l LE edema, no calf tendernses, neg homns BACK: No focal mildine tenderness to cervical/thoracic/lumbar spine NEUROLOGICAL: No facial assymetry, Normal speech, PSYCH: Normal mood, normal affect. SKIN: Warm, Dry, normal turgor, - Critical Care Time Total Critical Care Time: 35 Critical Care Statement: The care of this patient involved high complexity decision making to prevent further life threatening deterioration of the patient 's condition and/or to evaluate & treat vital organ system(s) failure or risk of failure. - Medical Decision Making 06/15/18 18:00 possible syncope - no other symtmos ddx - anemia,metabolic denargmeent, atypical acs will obtain labs, ct head, ekg labs noted for trop of 1.13 - no st changes on ekg NSTEMI - will admit for furrhter mangaement will start heparin case dw Dr. Wilkes - agree with telemetry will transfer the pt to [facility] in light of positive troponin Case discussed in detail with admitting physician including history, physical exam and ancillary studies. Admitting physician has assumed care for the patient, will follow all pending diagnostics and will complete the evaluation and treatment. Heart Score/ECG Review - ECG Impressions Comment:: 06/15/18 18:01 Twelve-lead EKG was performed and reviewed by me. There is normal sinus rhythm with a normal rate. The axis is normal. The intervals are normal. There is normal R wave progression There are no ST or T wave abnormalities. Impression: Normal twelve-lead EKG
[2018-06-15 16:22] LABS: PH,URINE 6.5 (4.5-8); URINE APPEARANCE Clear; URINE BILIRUBIN Negative (NEGATIVE); URINE COLOR Yellow; URINE GLUCOSE (UA) Negative (NEGATIVE); URINE KETONE Negative (NEGATIVE); URINE LEUK ESTERASE Negative (NEGATIVE); URINE NITRITE Negative (NEGATIVE); URINE PROTEIN Negative (NEGATIVE); URINE UROBILINOGEN 0.2 (0.2-1.0)
--- NOTE | 2018-06-15 16:23 | PDOC ---
History of Present Illness <John Mistry - Last Filed: 06/15/18 18:02> - General History Source: Patient Exam Limitations: No Limitations - History of Present Illness Initial Comments: 06/15/18 16:23 The patient is an 87F with a PMH of hypothyroidism, hypertension and right breast CA s/p right lumpectomy who presents to the ER with complaints of "feeling like she was going to fall". The patient states that she was in her normal state of health today and was ambulating to the bathroom without her walker. She began to develop a sensation that she was going to fall and slowly lowered herself to the ground. She denies head trauma and LOC. She also denies lightheadedness, room spinning sensation, CP, SOB, palpitations, nausea, vomiting, numbness, tingling, and weakness. <Brandon Hewitt - Last Filed: 06/15/18 19:05> - General Chief Complaint: Syncope/Near Syncope Stated Complaint: syncope,fall Time Seen by Provider: 06/15/18 15:36 Past History <John Mistry - Last Filed: 06/15/18 18:02> - Past Medical History Anemia: Yes Asthma: No Cancer: Yes (BREAST, R LUMPECTOMY) Cardiac Disorders: No CVA: No COPD: No CHF: No Dementia: No Diabetes: No GI Disorders: No Disorders: Yes (OBS) HTN: Yes Hypercholesterolemia: No Liver Disease: No Seizures: No Thyroid Disease: Yes (hypo) - Surgical History Abdominal Surgery: No Cardiac Surgery: No Neurologic Surgery: No Orthopedic Surgery: No - Immunization History Immunization Up to Date: Yes - Suicide/Smoking/Psychosocial Hx Smoking History: Never smoked Have you smoked in the past 12 months: No Hx Alcohol Use: Yes (RARE) Drug/Substance Use Hx: No Substance Use Type: None <Brandon Hewitt - Last Filed: 06/15/18 19:05> - Past Medical History Allergies/Adverse Reactions: Allergies Allergy/AdvReac Type Severity Reaction Status Date / Time cortisone Allergy Intermediate Swelling Verified 06/15/18 15:28 Penicillins Allergy Verified 06/15/18 15:28 nickel [Nickel] AdvReac Mild Rash Verified 06/15/18 15:28 peniciliin Allergy Intermediate Uncoded 11/17/16 12:43 Peaches AdvReac Mild redness Uncoded 11/17/16 12:43 Face Home Medications: Ambulatory Orders Acetaminophen [Tylenol Extra Strength] 500 mg PO PRN 11/15/16 Amlodipine Besylate [Norvasc -] 2.5 mg PO DAILY 11/15/16 Levothyroxine [Synthroid -] 100 mcg PO DAILY 11/15/16 Nebivolol HCl [Bystolic] 10 mg DAILY 11/15/16 Methyl Salicylate/Menthol Oint [Analgesic [place] -] 1 applic TP BID #30 applic 04/28 Review of Systems - Review of Systems Able to Perform ROS?: Yes Comments:: 06/15/18 16:31 GENERAL/CONSTITUTIONAL: Positive for sensation of falling. No fever or chills. No weakness. HEAD, EYES, EARS, NOSE AND THROAT: No change in vision. No ear pain or discharge. No sore throat. CARDIOVASCULAR: No chest pain, palpitations, or lightheadedness. RESPIRATORY: No cough, wheezing, shortness of breath, or hemoptysis. GASTROINTESTINAL: No nausea, vomiting, diarrhea, constipation, or abdominal pain. GENITOURINARY: No dysuria, frequency, hematuria, or change in urination. MUSCULOSKELETAL: No joint or muscle swelling or pain. No neck or back pain. SKIN: No rash or lesions. NEUROLOGIC: No headache, numbness, tingling, focal weakness, loss of consciousness, or change in strength/sensation. ENDOCRINE: No increased thirst. No abnormal weight change. HEMATOLOGIC/LYMPHATIC: No anemia, easy bleeding, or history of blood clots. ALLERGIC/IMMUNOLOGIC: No hives or skin allergy. Is the patient limited Serbian proficient: No <Brandon Hewitt - Last Filed: 06/15/18 19:05> *Physical Exam - Vital Signs Last Vital Signs Temp Pulse Resp BP Pulse Ox 97.7 F 73 16 156/80 97 06/15/18 15:27 06/15/18 15:27 06/15/18 15:27 06/15/18 15:27 06/15/18 15:27 <John Mistry - Last Filed: 06/15/18 18:02> - Vital Signs Last Vital Signs Temp Pulse Resp BP Pulse Ox 97.7 F 73 16 156/80 97 06/15/18 15:27 06/15/18 15:27 06/15/18 15:27 06/15/18 15:27 06/15/18 15:27 - Physical Exam Comments: 06/15/18 16:31 GENERAL: Well developed, well nourished. Awake and alert. No acute distress. HEENT: Normocephalic, atraumatic. Hearing grossly normal. Moist mucous membranes. PERRLA, EOMI. No conjunctival pallor. Sclera are non-icteric. Oropharynx is clear. NECK: Supple. Full ROM. No JVD. CARDIOVASCULAR: Regular rate and rhythm. No murmurs, rubs, or gallops. PULMONARY: No evidence of respiratory distress. Lungs clear to auscultation bilaterally. No wheezing, rales or rhonchi. ABDOMINAL: Soft. Non-tender. Non-distended. No rebound or guarding. GENITOURINARY: No CVA tenderness bilaterally. MUSCULOSKELETAL: Normal range of motion at all joints. No bony deformities or tenderness. EXTREMITIES: No cyanosis. No clubbing. No edema. No calf tenderness or swelling. SKIN: Warm and dry. Normal capillary refill. No rashes. No jaundice. NEUROLOGICAL: Alert, awake, appropriate. Cranial nerves 2-12 intact. No deficits to light touch and temperature in face, upper extremities and lower extremities. 5/5 strength in deltoids, biceps, triceps, quadriceps, hamstrings, and gastrocnemius. Finger to nose normal bilaterally. Normal speech. Gait is normal without ataxia. PSYCHIATRIC: Cooperative. Good eye contact. Appropriate mood and affect. <Brandon Hewitt - Last Filed: 06/15/18 19:05> Moderate Sedation - Procedure Monitoring Vital Signs: Procedure Monitoring Vital Signs Temperature 97.7 F 06/15/18 15:27 Pulse Rate 73 06/15/18 15:27 Respiratory Rate 16 06/15/18 15:27 Blood Pressure 156/80 06/15/18 15:27 O2 Sat by Pulse Oximetry (%) 97 06/15/18 15:27 <John Misrty - Last Filed: 06/15/18 18:02> - Procedure Monitoring Vital Signs: Procedure Monitoring Vital Signs Temperature 97.7 F 06/15/18 15:27 Pulse Rate 73 06/15/18 15:27 Respiratory Rate 16 06/15/18 15:27 Blood Pressure 156/80 06/15/18 15:27 O2 Sat by Pulse Oximetry (%) 97 06/15/18 15:27 <Brandon Hewitt - Last Filed: 06/15/18 19:05> Heart Score/ECG Review #1 General ECG Interpretation: Sinus Rhythm, Normal Rate, Normal Intervals, No acute ischemic changes Compared to previous ECG there are: No significant change 06/15/18 17:16 NSR vent rate 70 DE 174 QRS 88 QTc 462 No STD or MATHEUS No signs of acute ischemia Unchanged from prior <MarcelinaBrandon - Last Filed: 06/15/18 19:05> ED Treatment Course - LABORATORY CBC & Chemistry Diagram: 06/15/18 15:55 06/15/18 15:55 - ADDITIONAL ORDERS Additional order review: Laboratory Results 06/15/18 06/15/18 06/15/18 16:25 16:04 15:55 PT with INR 11.5 INR 1.03 Sodium Potassium Chloride Carbon Dioxide Anion Gap BUN Creatinine Creat Clearance w eGFR Random Glucose Calcium Total Bilirubin AST ALT Alkaline Phosphatase Creatine Kinase 287 H Creatine Kinase Index 1.6 CK-MB (CK-2) 4.6 H Troponin I Total Protein Albumin Urine Color Yellow Urine Appearance Clear Urine pH 6.5 Ur Specific [place] 1.020 Urine Protein Negative Urine Glucose (UA) Negative Urine Ketones Negative Urine Blood Trace-lysed H Urine Nitrite Negative Urine Bilirubin Negative Urine Urobilinogen 0.2 Ur Leukocyte Esterase Negative Urine RBC 2-5 Urine WBC 0-2 Ur Epithelial Cells 1+ Urine Bacteria 1+ 06/15/18 06/15/18 15:55 15:55 PT with INR INR Sodium 133 L Potassium 4.1 D Chloride 103 Carbon Dioxide 24 Anion Gap 6 L BUN 20 H Creatinine 0.8 Creat Clearance w eGFR > 60 Random Glucose 99 Calcium 9.0 Total Bilirubin 0.7 AST 23 D ALT 14 Alkaline Phosphatase 59 Creatine Kinase Cancelled Creatine Kinase Index CK-MB (CK-2) Troponin I 1.13 H* Cancelled Total Protein 7.6 Albumin 3.9 Urine Color Urine Appearance Urine pH Ur Specific [place] Urine Protein Urine Glucose (UA) Urine Ketones Urine Blood Urine Nitrite Urine Bilirubin Urine Urobilinogen Ur Leukocyte Esterase Urine RBC Urine WBC Ur Epithelial Cells Urine Bacteria 06/15/18 15:55 RBC 4.82 MCV 89.6 MCHC 33.4 RDW 12.9 MPV 8.4 Neutrophils % 71.9 Lymphocytes % 16.8 Monocytes % 8.9 Eosinophils % 1.9 Basophils % 0.5 - Medications Given in the ED: ED Medications Discontinued Medications Generic Name Dose Route Start Last Admin Trade Name Willy PRN Reason Stop Dose Admin Aspirin 325 mg 06/15/18 17:12 12 17:29 Ecotrin - PO 06/15/18 17:13 325 mg ONCE ONE Administration <John Mistry - Last Filed: 06/15/18 18:02> - LABORATORY CBC & Chemistry Diagram: 06/15/18 15:55 06/15/18 15:55 - ADDITIONAL ORDERS Additional order review: Laboratory Results 06/15/18 06/15/18 16:04 15:55 Creatine Kinase Cancelled Troponin I Cancelled Urine Color Yellow Urine Appearance Clear Urine pH 6.5 Ur Specific [place] 1.020 Urine Protein Negative Urine Glucose (UA) Negative Urine Ketones Negative Urine Blood Trace-lysed H Urine Nitrite Negative Urine Bilirubin Negative Urine Urobilinogen 0.2 Ur Leukocyte Esterase Negative - RADIOLOGY Radiology Studies Ordered: Category Date Time Status HEAD CT WITHOUT CONTRAST [CT] Stat CT Scan 06/15/18 15:36 Taken CHEST X-RAY PORTABLE* [RAD] Stat Radiology 06/15/18 15:36 Ordered <Brandon Hewitt - Last Filed: 06/15/18 19:05> Medical Decision Making - Medical Decision Making 06/15/18 17:29 The patient is an 87F with a PMH of HTN and hypothyroidism who presents to the ER with complaints of falling. The patient's story does not correlate and she continues to express confusion as she tells it. Labs and imaging ordered. CTH negative. Trop of <1.0. Will give asa and d/w cardiology. 06/15/18 17:35 Dr. Dangelo paged [phone]. 06/15/18 17:40 Case d/w Dr. Dangelo who wants to add a lipid profile and TSH. He agrees to start heparin. Orders placed. Hospitalist microblogged for admission. Attending endorsed pt to hospitalist team. Will transfer to main hospital for telemetry admission. <Brandon Hewitt - Last Filed: 06/15/18 19:05> *DC/Admit/Observation/Transfer - Discharge Dispostion Decision to Admit order: Yes <John Mistry - Last Filed: 06/15/18 18:02> - Discharge Dispostion Decision to Admit order Date/Time: Decision to Admit Order Category Date Time Status Decision to Admit to Hospital Routine Admission 06/15/18 15:52 Active <Brandon Hewitt - Last Filed: 06/15/18 19:05> Diagnosis at time of Disposition: NSTEMI (non-ST elevated myocardial infarction) Syncope Qualifiers: Syncope type: unspecified Qualified Code(s): R55 - Syncope and collapse - Discharge Dispostion Condition at time of disposition: Guarded - Referrals Referrals: Lux Parekh MD [Primary Care Provider] -
[2018-06-15 16:24] LABS: BASO % 0.5 % (0-2.0); EOS % 1.9 % (0-4.5); HEMATOCRIT 43.2 % (32.4-45.2); HEMOGLOBIN 14.4 GM/dl (10.7-15.3); LYMPH % 16.8 % (8-40); MCH 29.9 pg (25.7-33.7); MCHC 33.4 g/dl (32.0-36.0); MEAN CELL VOLUME 89.6 fl (80-96); MEAN PLT VOLUME 8.4 fl (7.5-11.1); MONO % 8.9 % (3.8-10.2); NEUT % 71.9 % (42.8-82.8); PLATELET COUNT 271 K/MM3 (134-434); RBC 4.82 M/mm3 (3.60-5.2); RDW 12.9 % (11.6-15.6); WHITE BLOOD COUNT 7.9 K/mm3 (4.0-10.8)
[2018-06-15 16:34] LABS: ALBUMIN 3.9 g/dl (3.5-5.0); ALK PHOS 59 U/L (32-92); ANION GAP 6 MMOL/L (8-16); BILIRUBIN,TOTAL 0.7 mg/dl (0.2-1.0); BLOOD UREA NITROGEN 20 mg/dl (7-18); CHLORIDE 103 mmol/L (98-107); CO2 24 mmol/L (22-28); CREATININE 0.8 mg/dl (0.6-1.3); GLUCOSE,RANDOM 99 mg/dl (74-106); POTASSIUM 4.1 mmol/L (3.5-5.1); SGOT/AST 23 U/L (10-42); SGPT/ALT 14 U/L (10-40); SODIUM 133 mmol/L (136-145); TOT PROT 7.6 g/dl (6.4-8.3)
[2018-06-15 16:51] LABS: INR 1.03 (0.82-1.09); PROTHROMBIN TIME (PATIENT) 11.5 SEC (10.2-13.0)
[2018-06-15 17:05] LABS: EPI CELLS 1+ /HPF; URINE BACTERIA 1+ /hpf (NEGATIVE); URINE WBC 0-2 (0-5)
[2018-06-15] MEDS ORDERED: ASPIRIN COATED 81 MG TABLET.EC PO ONE (17:12)
[2018-06-15] MEDS ORDERED: ASPIRIN 81 MG CHEWABLE TABLETS ONE (17:22)
[2018-06-15] MEDS ORDERED: HEPARIN NA (PORCINE) 5,000 UNITS/ML 1ML VIAL IVPUSH ONE (17:44)
[2018-06-15] MEDS ORDERED: HEPARIN NA (PORCINE) 5,000 UNITS/ML 1ML VIAL IVPUSH PRN ×2 (17:56)
[2018-06-15] MEDS ORDERED: HEPARIN INFUSION - 25,000 UNITS/500 ML INFUS.BAG IVPB ONE (18:00)
[2018-06-15] MEDS ORDERED: HEPARIN NA (PORCINE) 5,000 UNITS/ML 1ML VIAL ONE (18:00)
[2018-06-15] MEDS: HEPARIN INFUSION - 25,000 UNITS/500 ML INFUS.BAG IVPB SCH (18:14)
--- NOTE | 2018-06-15 23:13 | CON.CARD ---
Consult - History of Present Illness History of Present Illness: The patient is an 87F with a PMH of hypothyroidism, hypertension and right breast CA s/p right lumpectomy who presents to the ER with complaints of "feeling like she was going to fall". The patient states that she was in her normal state of health today and was ambulating to the bathroom without her walker. She began to develop a sensation that she was going to fall and slowly lowered herself to the ground. She denies head trauma and LOC. She also denies lightheadedness, room spinning sensation, CP, SOB, palpitations, nausea, vomiting, numbness, tingling, and weakness. - Past Medical History Cardio/Vascular: Yes: HTN, Hyperlipdemia Gastrointestinal: Yes: Other (Dysphagia, being worked up by GI.) Musculoskeletal: Yes: Osteoarthritis Endocrine: Yes: Hypothyroidism - Past Surgical History Past Surgical History: Yes: Breast Biopsy (History of right breast carcinome in 1995 treated with lumpectomy, radiotherapy and Tamoxiphen) - Alcohol/Substance Use Hx Alcohol Use: Yes (RARE) - Smoking History Smoking history: Never smoked Have you smoked in the past 12 months: No - Social History ADL: Independent History of Recent Travel: No Home Medications - Allergies Allergies/Adverse Reactions: Allergies Allergy/AdvReac Type Severity Reaction Status Date / Time cortisone Allergy Intermediate Swelling Verified 06/15/18 15:28 Penicillins Allergy Verified 06/15/18 15:28 nickel [Nickel] AdvReac Mild Rash Verified 06/15/18 15:28 peniciliin Allergy Intermediate Uncoded 11/17/16 12:43 [place]aches AdvReac Mild redness Uncoded 11/17/16 12:43 Face - Home Medications Home Medications: Ambulatory Orders Acetaminophen [Tylenol Extra Strength] 500 mg PO PRN 11/15/16 Amlodipine Besylate [Norvasc -] 2.5 mg PO DAILY 11/15/16 Levothyroxine [Synthroid -] 100 mcg PO DAILY 11/15/16 Nebivolol HCl [Bystolic] 10 mg DAILY 11/15/16 Methyl Salicylate/Menthol Oint [Analgesic [place] -] 1 applic TP BID #30 applic 04/28 Family Disease History - Family Disease History Family Disease History: Diabetes: Brother, CA: Sister (Colon cancer) Vital Signs: Vital Signs Temperature 97.9 F 06/15/18 19:49 Pulse Rate 71 06/15/18 19:49 Respiratory Rate 18 06/15/18 19:49 Blood Pressure 159/71 06/15/18 19:49 O2 Sat by Pulse Oximetry (%) 99 06/15/18 19:49 - Other Data Labs, Other Data: CBC, BMP 06/15/18 15:55 06/15/18 15:55 INR, PTT INR 1.03 (0.82-1.09) 06/15/18 16:25 Troponin, BNP 06/15/18 06/15/18 15:55 15:55 Troponin I Cancelled 1.13 H* Troponin, BNP 06/15/18 06/15/18 15:55 15:55 Troponin I Cancelled 1.13 H*
[2018-06-16 04:18] VITALS: BMI 29.5
[2018-06-16 04:48] LABS: HEMATOCRIT 37.2 % (32.4-45.2); HEMOGLOBIN 13.2 GM/dL (10.7-15.3); MCH 30.7 pg (25.7-33.7); MCHC 35.4 g/dl (32.0-36.0); MEAN CELL VOLUME 86.6 fl (80-96); MEAN PLT VOLUME 7.8 fl (7.5-11.1); PLATELET COUNT 247 K/MM3 (134-434); RBC 4.29 M/mm3 (3.60-5.2); RDW 13.6 % (11.6-15.6); WHITE BLOOD COUNT 8.3 K/mm3 (4.0-10.0)
--- NOTE | 2018-06-16 04:54 | HP ---
CHIEF COMPLAINT: Fall, Not feeling well PCP: Izabella HISTORY OF PRESENT ILLNESS: 87 yo female with PMH of HTN, Hypothyroidism, R Breast CA (S/P lumpectomy) admitted with complaint of a fall after not feeling well. She states she has not had any episodes like this in the past and denies any sort of chest pain or shortness of breath. She states she simply did not feel well and had a fall. She does not recall if she lost consciousness or hit her head. She currently has no complaints and is resting in bed comfortably. ER course was notable for: (1) Head CT negative (2) EKG normal sinus with no concerning ST/Twave abnormalities (3) Troponin 1.13, Cardiology consulted, started on heparin drip, transferred from [facility] to [facility] Recent Travel: none PAST MEDICAL HISTORY: HTN, Hypothyroidism, R Breast CA (S/P lumpectomy) PAST SURGICAL HISTORY: Right breast lumpectomy Social History: Smoking: Former, quit > 30 years ago Alcohol: Very rarely socially Drugs: Denies Family History: Allergies cortisone Allergy (Intermediate, Verified 06/15/18 15:28) Swelling Penicillins Allergy (Verified 06/15/18 15:28) nickel [Nickel] Adverse Reaction (Mild, Verified 06/15/18 15:28) Rash peniciliin Allergy (Intermediate, Uncoded 11/17/16 12:43) [place]aches Adverse Reaction (Mild, Uncoded 11/17/16 12:43) redness Face HOME MEDICATIONS: Home Medications Medication Instructions Recorded Acetaminophen [Tylenol Extra 500 mg PO PRN 11/15/16 Strength] Amlodipine Besylate [Norvasc -] 2.5 mg PO DAILY 11/15/16 Levothyroxine [Synthroid -] 100 mcg PO DAILY 11/15/16 Nebivolol HCl [Bystolic] 10 mg DAILY 11/15/16 Methyl Salicylate/Menthol Oint 1 applic TP BID #30 applic 11/19/16 [Analgesic [place] -] REVIEW OF SYSTEMS CONSTITUTIONAL: Absent: fever, chills, diaphoresis, generalized weakness, malaise, loss of appetite, weight change HEENT: Absent: rhinorrhea, nasal congestion, throat pain, throat swelling, difficulty swallowing, mouth swelling, ear pain, eye pain, visual changes CARDIOVASCULAR: Absent: chest pain, syncope, palpitations, irregular heart rate, lightheadedness , peripheral edema RESPIRATORY: Absent: cough, shortness of breath, dyspnea with exertion, orthopnea, wheezing, stridor, hemoptysis GASTROINTESTINAL: Absent: abdominal pain, abdominal distension, nausea, vomiting, diarrhea, constipation, melena, hematochezia GENITOURINARY: Absent: dysuria, frequency, urgency, hesitancy, hematuria, flank pain, genital pain MUSCULOSKELETAL: Absent: myalgia, arthralgia, joint swelling, back pain, neck pain SKIN: Absent: rash, itching, pallor HEMATOLOGIC/IMMUNOLOGIC: Absent: easy bleeding, easy bruising, lymphadenopathy, frequent infections ENDOCRINE: Absent: unexplained weight gain, unexplained weight loss, heat intolerance, cold intolerance NEUROLOGIC: Absent: headache, focal weakness or paresthesias, dizziness, unsteady gait, seizure, mental status changes, bladder or bowel incontinence PSYCHIATRIC: Absent: anxiety, depression, suicidal or homicidal ideation, hallucinations. PHYSICAL EXAMINATION Vital Signs - 24 hr 06/15/18 06/15/18 06/15/18 15:27 18:21 19:49 Temperature 97.7 F 97.9 F Pulse Rate 73 Pulse Rate [ 70 71 Apical] Respiratory 16 19 18 Rate Blood Pressure 156/80 Blood Pressure 176/84 H 159/71 [Arm] O2 Sat by Pulse 97 98 99 Oximetry (%) 06/16/18 06/16/18 02:00 03:27 Temperature 97.5 F L 97.2 F L Pulse Rate 67 66 Pulse Rate [ Apical] Respiratory 20 20 Rate Blood Pressure 152/79 138/65 Blood Pressure [Arm] O2 Sat by Pulse 96 Oximetry (%) GENERAL: A&O, no acute distress HEAD: Normocephalic, atraumatic. EYES: PERRL, no scleral icterus EARS, NOSE, THROAT: oropharynx clear without exudates. Moist mucous membranes. NECK: supple without lymphadenopathy LUNGS: CTA b/l, no crackles or wheezes HEART: Regular rate and rhythm, normal S1 and S2 without murmur ABDOMEN: Soft, nontender to palpation, normoactive bowel sounds EXTREMITIES: 2+ pulses, warm, well-perfused. No peripheral edema. Small donut pad on right foot she states was placed by podiatry recently NEUROLOGICAL: Cranial nerves II-XII grossly intact. Normal speech. PSYCHIATRIC: Cooperative. Good eye contact. Appropriate mood and affect. Laboratory Results - last 24 hr 06/15/18 06/15/18 06/15/18 15:55 15:55 15:55 WBC 7.9 RBC 4.82 Hgb 14.4 Hct 43.2 MCV 89.6 MCH 29.9 MCHC 33.4 RDW 12.9 Plt Count 271 MPV 8.4 Absolute Neuts (auto) 5.8 Neutrophils % 71.9 Lymphocytes % 16.8 Monocytes % 8.9 Eosinophils % 1.9 Basophils % 0.5 PT with INR INR PTT (Actin FS) Sodium 133 L Potassium 4.1 D Chloride 103 Carbon Dioxide 24 Anion Gap 6 L BUN 20 H Creatinine 0.8 Creat Clearance w eGFR > 60 Random Glucose 99 Calcium 9.0 Total Bilirubin 0.7 AST 23 D ALT 14 Alkaline Phosphatase 59 Creatine Kinase Cancelled Creatine Kinase Index CK-MB (CK-2) Troponin I Cancelled 1.13 H* Total Protein 7.6 Albumin 3.9 Triglycerides Cholesterol Total LDL Cholesterol HDL Cholesterol TSH Urine Color Urine Appearance Urine pH Ur Specific [place] Urine Protein Urine Glucose (UA) Urine Ketones Urine Blood Urine Nitrite Urine Bilirubin Urine Urobilinogen Ur Leukocyte Esterase Urine RBC Urine WBC Ur Epithelial Cells Urine Bacteria 06/15/18 06/15/18 06/15/18 15:55 16:04 16:25 WBC RBC Hgb Hct MCV MCH MCHC RDW Plt Count MPV Absolute Neuts (auto) Neutrophils % Lymphocytes % Monocytes % Eosinophils % Basophils % PT with INR 11.5 INR 1.03 PTT (Actin FS) Sodium Potassium Chloride Carbon Dioxide Anion Gap BUN Creatinine Creat Clearance w eGFR Random Glucose Calcium Total Bilirubin AST ALT Alkaline Phosphatase Creatine Kinase 287 H Creatine Kinase Index 1.6 CK-MB (CK-2) 4.6 H Troponin I Total Protein Albumin Triglycerides Cholesterol Total LDL Cholesterol HDL Cholesterol TSH Urine Color Yellow Urine Appearance Clear Urine pH 6.5 Ur Specific [place] 1.020 Urine Protein Negative Urine Glucose (UA) Negative Urine Ketones Negative Urine Blood Trace-lysed H Urine Nitrite Negative Urine Bilirubin Negative Urine Urobilinogen 0.2 Ur Leukocyte Esterase Negative Urine RBC 2-5 Urine WBC 0-2 Ur Epithelial Cells 1+ Urine Bacteria 1+ 06/15/18 06/15/18 16:30 16:45 WBC RBC Hgb Hct MCV MCH MCHC RDW Plt Count MPV Absolute Neuts (auto) Neutrophils % Lymphocytes % Monocytes % Eosinophils % Basophils % PT with INR INR PTT (Actin FS) 26.6 Sodium Potassium Chloride Carbon Dioxide Anion Gap BUN Creatinine Creat Clearance w eGFR Random Glucose Calcium Total Bilirubin AST ALT Alkaline Phosphatase Creatine Kinase Creatine Kinase Index CK-MB (CK-2) Troponin I Total Protein Albumin Triglycerides 104 Cholesterol 241 Total LDL Cholesterol 173 HDL Cholesterol 47 TSH 0.87 Urine Color Urine Appearance Urine pH Ur Specific [place] Urine Protein Urine Glucose (UA) Urine Ketones Urine Blood Urine Nitrite Urine Bilirubin Urine Urobilinogen Ur Leukocyte Esterase Urine RBC Urine WBC Ur Epithelial Cells Urine Bacteria ASSESSMENT/PLAN: 87 yo female with PMH of HTN, Hypothyroidism, R Breast CA (S/P lumpectomy) admitted with complaint of a fall after not feeling well, positive troponin, no EKG changes. NSTEMI -EKG noted with no ST/Twave abnormalities -Troponin 1.13, repeat trending -Cardiology consulted -Heparin drip begun -Will await further recommendations from Cardiology HTN -Norvasc 2.5 mg PO Daily -Elevated in ED to 176/84, currently stable at 152/79 Hypothyroidism -100 mcg Synthroid PO Daily DVT Prophylaxis -On heparin drip FEN -Fluids: None -Electrolytes: No electrolyte abnormalities, BMP in AM -Nutrition: Na controlled diet Disposition Telemetry Visit type - Emergency Visit Emergency Visit: Yes ED Registration Date: 06/15/18 Care time: The patient presented to the Emergency Department on the above date and was hospitalized for further evaluation of their emergent condition. - New Patient This patient is new to me today: Yes Date on this admission: 06/16/18 - Critical Care Critical Care patient: No
--- NOTE | 2018-06-16 04:58 | PN ---
Teaching Attending Note Name of Resident: [place] ATTENDING PHYSICIAN STATEMENT I saw and evaluated the patient. I reviewed the resident's note and discussed the case with the resident. I agree with the resident's findings and plan as documented. SUBJECTIVE: Patient is an 87 year old woman with a PMH of hypothyroidism, ?osteoarthritis, hypertension and right breast CA s/p right lumpectomy who presents to [facility] with complaints of "feeling like she was going to fall". The patient states that she was in her normal state of health today and was ambulating to the bathroom without her walker. She began to develop a sensation that she was going to fall and slowly lowered herself to the ground. Has chronic knee pain. Recent podiatry visit for foot issues. She denies head trauma and LOC. She also denies lightheadedness, room spinning sensation, CP, SOB, palpitations, nausea, vomiting, numbness, tingling, and weakness. Noted to have elevated troponin. Cardiology was consulted. Transferred to [facility] for telemetry monitoring and cardiologic care. OBJECTIVE: Alert Vital Signs Period Temp Pulse Resp BP Sys/Garcia Pulse Ox Last 24 Hr 97.2 F-97.9 F 66-73 16-20 138-176/65-84 96-99 HEENT: No Jaundice, eye redness or discharge, PERRLA, EOMI. Normocephalic, atraumatic. External ears are normal and hearing is grossly intact. No nasal discharge. Neck: Supple, nontender. No palpable adenopathy or thyromegaly. No JVD Chest: Good effort. Clear to auscultation and percussion. Heart: Regular. No S3, rub or murmur Abdomen: Not distended, soft, nontender and no HSM. No rebound or guarding. Normoactive bowel sounds. Ext: Peripheral pulses intact. No leg edema. Donut pad on ball of right foot. Skin: Warm and very dry scaly skin. No petechiae, rash or ecchymosis. Neuro: Alert. Oriented x3. CN 2-12 grossly intact. Sensation grossly intact in all four extremities and DTR are symmetric. Current Medications Generic Name Dose Route Start Last Admin Trade Name Freq PRN Reason Stop Dose Admin Acetaminophen 650 mg 06/16/18 04:46 Tylenol - PO Q6H PRN PAIN Heparin Sodium (Porcine) 5,000 unit 06/15/18 17:56 Heparin - IVPUSH PRN PRN Heparin Sodium/Dextrose 25,000 units in 500 mls @ 20 mls/hr 06/15/18 18:00 18:14 Heparin Infusion - IVPB 1,000 units/hr TITR ANAI 20 mls/hr Administration Protocol 1,000 UNITS/HR Home Medications Medication Instructions Recorded Acetaminophen [Tylenol Extra 500 mg PO PRN 11/15/16 Strength] Amlodipine Besylate [Norvasc -] 2.5 mg PO DAILY 11/15/16 Levothyroxine [Synthroid -] 100 mcg PO DAILY 11/15/16 Nebivolol HCl [Bystolic] 10 mg DAILY 11/15/16 Methyl Salicylate/Menthol Oint 1 applic TP BID #30 applic 11/19/16 [Analgesic [place] -] Abnormal Lab Results 06/15/18 06/15/18 06/15/18 15:55 15:55 15:55 Sodium 133 L Anion Gap 6 L BUN 20 H Creatine Kinase 287 H CK-MB (CK-2) 4.6 H Troponin I 1.13 H* Urine Blood 06/15/18 16:04 Sodium Anion Gap BUN Creatine Kinase CK-MB (CK-2) Troponin I Urine Blood Trace-lysed H ASSESSMENT AND PLAN: 1. Near syncope/NSTEMI - Head CT did not show any acute pathology. EKG is NSR and did not show any ST-T wave changes. Will get repeat troponin, continue IV heparin drip and beta jose, telemetry monitoring, get ECHO and fasting lipids. Treat with statin. 2. DVT prophylaxis - On IV Heparin drip 3. Advance directives - Full code
[2018-06-16 05:41] LABS: ANION GAP 7 MMOL/L (8-16); BLOOD UREA NITROGEN 15 mg/dL (7-18); CALCIUM 8.5 mg/dL (8.5-10.1); CHLORIDE 106 mmol/L (98-107); CO2 27 mmol/L (21-32); CREATININE 0.8 mg/dL (0.55-1.3); GLUCOSE,RANDOM 96 mg/dL (74-106); MAGNESIUM 2.2 mg/dL (1.8-2.4); PHOSPHOROUS 3.4 mg/dL (2.5-4.9); SODIUM 140 mmol/L (136-145)
[2018-06-16 08:40] LABS: CHOLESTEROL 210 mg/dL (50-200); HDL CHOLESTEROL 45 mg/dL (40-60); TRIGLYCERIDES 118 mg/dL (0-150)
--- NOTE | 2018-06-16 10:14 | EKG ---
Test Reason : Blood Pressure : / mmHG Vent. Rate : 071 BPM Atrial Rate : 071 BPM P-R Int : 174 ms QRS Dur : 088 ms QT Int : 426 ms P-R-T Axes : 028 -09 -05 degrees QTc Int : 462 ms NORMAL SINUS RHYTHM NORMAL ECG WHEN COMPARED WITH ECG OF 17-NOV-2016 13:50, NONSPECIFIC T WAVE ABNORMALITY NO LONGER EVIDENT IN ANTERIOR LEADS Confirmed by RADHA HERNANDEZ, ALISON ([id number]) on 06/16/2018 10:14:13 AM Referred By: DR MARTI Confirmed By:ALISON GARCIA MD
--- NOTE | 2018-06-16 10:48 | CON.CARD ---
Consult Consult Specialty:: cardiology Reason for Consultation:: possible syncope - History of Present Illness History of Present Illness: 87y F hx of hypothyroidism, hypertension presents with possible syncope while walking. The patients states she woke up feeling fine this morning, sometime after 1pm (when her doughter left) she started feeling genearlized weakenss. she somehow ended up on the floor - does not recall specifically if she laid down. denies any associated cp, palpitations, ligheahdedess, cough, sob, hemoptysis,, increased leg swelling,a bd pain, back pain. She called EMS herself who sent her to the ED. pt thinks she was down approx 1 hr but is uncertain. currently she is endorsing a mild headche, also endorses slight R arm discomfort. USOH this mrara, ambulating to the restroom, felt like she was going to fall so she sat down slowly denies any lightheadedness, vertigo, cp, sob, palpitations, n/v, nmnbess/ tingling/weakness. f/c, cough, diarrhea, melena/bpr, pt notse mild headache PMD - History Source History Provided By: Medical Record - Past Medical History Cardio/Vascular: Yes: HTN, Hyperlipdemia Gastrointestinal: Yes: Other (Dysphagia, being worked up by GI.) Musculoskeletal: Yes: Osteoarthritis Endocrine: Yes: Hypothyroidism - Past Surgical History Past Surgical History: Yes: Breast Biopsy (History of right breast carcinome in 1995 treated with lumpectomy, radiotherapy and Tamoxiphen) - Alcohol/Substance Use Hx Alcohol Use: Yes (RARE) - Smoking History Smoking history: Never smoked Have you smoked in the past 12 months: No - Social History ADL: Independent History of Recent Travel: No Home Medications - Allergies Allergies/Adverse Reactions: Allergies Allergy/AdvReac Type Severity Reaction Status Date / Time cortisone Allergy Intermediate Swelling Verified 06/15/18 15:28 Penicillins Allergy Verified 06/15/18 15:28 nickel [Nickel] AdvReac Mild Rash Verified 06/15/18 15:28 peniciliin Allergy Intermediate Uncoded 11/17/16 12:43 Peaches AdvReac Mild redness Uncoded 11/17/16 12:43 Face - Home Medications Home Medications: Ambulatory Orders Acetaminophen [Tylenol Extra Strength] 500 mg PO PRN 11/15/16 Amlodipine Besylate [Norvasc -] 2.5 mg PO DAILY 11/15/16 Levothyroxine [Synthroid -] 100 mcg PO DAILY 11/15/16 Nebivolol HCl [Bystolic] 10 mg DAILY 11/15/16 Methyl Salicylate/Menthol Oint [Analgesic [place] -] 1 applic TP BID #30 applic 04/28 Family Disease History - Family Disease History Family Disease History: Diabetes: Brother, CA: Sister (Colon cancer) Review of Systems - Review of Systems Constitutional: reports: Weakness Eyes: reports: No Symptoms HENT: reports: No Symptoms Neck: reports: No Symptoms Cardiovascular: reports: No Symptoms Respiratory: reports: No Symptoms Gastrointestinal: reports: No Symptoms Genitourinary: reports: No Symptoms Breasts: reports: No Symptoms Reported Musculoskeletal: reports: Muscle Weakness Integumentary: reports: No Symptoms Neurological: reports: No Symptoms Endocrine: reports: No Symptoms Hematology/Lymphatic: reports: No Symptoms Psychiatric: reports: No Symptoms Vital Signs: Vital Signs Temperature 98.3 F 06/16/18 08:59 Pulse Rate 66 06/16/18 08:59 Respiratory Rate 16 06/16/18 09:00 Blood Pressure 111/82 06/16/18 08:59 O2 Sat by Pulse Oximetry (%) 98 06/16/18 09:00 - Other Data Labs, Other Data: CBC, BMP 06/16/18 04:30 06/16/18 04:30 INR, PTT INR 1.03 (0.82-1.09) 06/15/18 16:25 Troponin, BNP 06/15/18 06/15/18 06/16/18 15:55 15:55 04:30 Troponin I Cancelled 1.13 H* 0.09 H Troponin, BNP 06/15/18 06/15/18 06/16/18 15:55 15:55 04:30 Troponin I Cancelled 1.13 H* 0.09 H Imaging - Results Chest X-ray: Image Reviewed (Right axillary clips; right hemidiaphragm elevation ; no acute patholoby) Problem List - Problems (1) NSTEMI (non-ST elevated myocardial infarction) Assessment/Plan: 1st TNI 1.1 F/u TNI serially. EKG: normal study. F/u ECHO for LVEF, wall motion. IV heparin ASA Statin. Code(s): I21.4 - NON-ST ELEVATION (NSTEMI) MYOCARDIAL INFARCTION (2) Syncope Assessment/Plan: f/u orthostatic vital signs Maintatin hydration Carotid artery US ECHO for LVEF, wall motion, r/o thrombus; valve status. TSH Code(s): R55 - SYNCOPE AND COLLAPSE Qualifiers: Syncope type: unspecified Qualified Code(s): R55 - Syncope and collapse (3) Advanced directives, counseling/discussion Code(s): Z71.89 - OTHER SPECIFIED COUNSELING (4) Hypertension Code(s): I10 - ESSENTIAL (PRIMARY) HYPERTENSION (5) Hypothyroidism Code(s): E03.9 - HYPOTHYROIDISM, UNSPECIFIED (6) Osteoarthritis Code(s): M19.90 - UNSPECIFIED OSTEOARTHRITIS, UNSPECIFIED SITE
--- NOTE | 2018-06-16 12:16 | ECHO ---
Name: MELA CAROLINE Exam:Adult Echocardiogram Study Date: 06/16/2018 09:07 AM Age: 87 yrs Reason For Study: ELEVATED TROPONIN Height: 61 in Weight: 156 lb BSA: 1.7 m2 MMode/2D Measurements & Calculations IVSd: 0.82 cm Ao root diam: 2.6 cm LVIDd: 4.2 cm LA dimension: 3.4 cm LVIDs: 3.0 cm LVPWd: 0.77 cm EDV(Teich): 79.7 ml ESV(Teich): 33.9 ml Doppler Measurements & Calculations MV E max gian: 57.3 cm/sec AI P1/2t: 386.9 msec MV A max gian: 93.8 cm/sec MV E/A: 0.61 AI max gian: 222.9 cm/sec TR max gian: 220.8 cm/sec AI max P.0 mmHg TR max P.5 mmHg AI dec slope: 168.8 cm/sec2 PI end-d gian: 70.8 cm/sec Med Peak E' Gian: 4.8 cm/sec Med E/e': 12.0 Lat Peak E' Gian: 6.3 cm/sec Lat E/e': 9.0 Procedure A two-dimensional transthoracic echocardiogram with color flow and Doppler was performed. Left Ventricle The left ventricular size, thickness and function are normal. The left ventricular ejection fraction is normal. E/A reversal consistent with but not diagnostic of poor LV compliance. The left ventricular w all motion is normal. Right Ventricle The right ventricle is not well visualized. Atria Normal left and right atrial size and function. Mitral Valve There is mild mitral valve thickening. There is no mitral valve stenosis. There is trace mitral regur gitation. Tricuspid Valve The tricuspid valve is normal. There is no tricuspid stenosis. There is mild tricuspid regurgitation. Right ventricular systolic pressure is normal. Aortic Valve The aortic valve is not well visualized. No hemodynamically significant valvular aortic stenosis. Mil d to moderate aortic regurgitation. Pulmonic Valve The pulmonic valve is not well visualized. There is no pulmonic valvular stenosis. Trace to mild pulm onic valvular regurgitation. Great Vessels The aortic root is normal size. Pericardium/Pleura There is no pericardial effusion. Interpretation Summary The left ventricular size, thickness and function are normal The left ventricular ejection fraction is normal. The left ventricular wall motion is normal. There is mild tricuspid regurgitation. Right ventricular systolic pressure is normal. Mild to moderate aortic regurgitation. E/A reversal consistent with but not diagnostic of poor LV compliance There is trace mitral regurgitation. MD Daniel Cuevas 06/16/2018 12:16 PM
--- NOTE | 2018-06-16 13:15 | PN ---
Progress Note, Physician History of Present Illness: The patient is an 87F with a PMH of hypothyroidism, hypertension and right breast CA s/p right lumpectomy who presents to the ER with complaints of "feeling like she was going to fall". The patient states that she was in her normal state of health today and was ambulating to the bathroom without her walker. She began to develop a sensation that she was going to fall and slowly lowered herself to the ground. She denies head trauma and LOC. She also denies lightheadedness, room spinning sensation, CP, SOB, palpitations, nausea, vomiting, numbness, tingling, and weakness. - Current Medication List Current Medications: Active Medications Acetaminophen (Tylenol -) 650 mg PO Q6H PRN PRN Reason: PAIN LEVEL 1-5 Heparin Sodium (Porcine) (Heparin -) 5,000 unit IVPUSH PRN PRN Heparin Sodium/Dextrose (Heparin Infusion -) 25,000 units in 500 mls @ 20 mls/ hr IVPB TITR ANAI; Protocol Last Titration: 06/16/18 08:50 Dose: 900 units/hr, 18 mls/hr - Objective Vital Signs: Vital Signs Temperature 98.3 F 06/16/18 08:59 Pulse Rate 66 06/16/18 08:59 Respiratory Rate 16 06/16/18 09:00 Blood Pressure 111/82 06/16/18 08:59 O2 Sat by Pulse Oximetry (%) 95 06/16/18 10:59 Eyes: Yes: WNL, Conjunctiva Clear, EOM Intact HENT: Yes: WNL, Atraumatic, Normocephalic Neck: Yes: WNL, Supple, Trachea Midline Cardiovascular: Yes: WNL, Regular Rate and Rhythm Respiratory: Yes: WNL, Regular, CTA Bilaterally Gastrointestinal: Yes: WNL, Normal Bowel Sounds Genitourinary: Yes: WNL Musculoskeletal: Yes: WNL Extremities: Yes: WNL Edema: No Integumentary: Yes: WNL Neurological: Yes: WNL, Alert, Oriented ...Motor Strength: WNL Psychiatric: Yes: WNL Labs: CBC, BMP 06/16/18 04:30 06/16/18 04:30 INR, PTT INR 1.03 (0.82-1.09) 06/15/18 16:25 Laboratory Tests 06/15/18 06/15/1818 15:55 15:55 15:55 WBC 7.9 RBC 4.82 Hgb 14.4 Hct 43.2 MCV 89.6 MCH 29.9 MCHC 33.4 RDW 12.9 Plt Count 271 MPV 8.4 Absolute Neuts (auto) 5.8 Neutrophils % 71.9 Lymphocytes % 16.8 Monocytes % 8.9 Eosinophils % 1.9 Basophils % 0.5 PT with INR INR PTT (Actin FS) Sodium 133 L Potassium 4.1 D Chloride 103 Carbon Dioxide 24 Anion Gap 6 L BUN 20 H Creatinine 0.8 Creat Clearance w eGFR > 60 Random Glucose 99 Calcium 9.0 Phosphorus Magnesium Total Bilirubin 0.7 AST 23 D ALT 14 Alkaline Phosphatase 59 Creatine Kinase Cancelled Creatine Kinase Index CK-MB (CK-2) Troponin I Cancelled 1.13 H* Total Protein 7.6 Albumin 3.9 Triglycerides Cholesterol Total LDL Cholesterol HDL Cholesterol TSH Urine Color Urine Appearance Urine pH Ur Specific [place] Urine Protein Urine Glucose (UA) Urine Ketones Urine Blood Urine Nitrite Urine Bilirubin Urine Urobilinogen Ur Leukocyte Esterase Urine RBC Urine WBC Ur Epithelial Cells Urine Bacteria 06/15/18 06/15/18 06/15/18 15:55 16:04 16:25 WBC RBC Hgb Hct MCV MCH MCHC RDW Plt Count MPV Absolute Neuts (auto) Neutrophils % Lymphocytes % Monocytes % Eosinophils % Basophils % PT with INR 11.5 INR 1.03 PTT (Actin FS) Sodium Potassium Chloride Carbon Dioxide Anion Gap BUN Creatinine Creat Clearance w eGFR Random Glucose Calcium Phosphorus Magnesium Total Bilirubin AST ALT Alkaline Phosphatase Creatine Kinase 287 H Creatine Kinase Index 1.6 CK-MB (CK-2) 4.6 H Troponin I Total Protein Albumin Triglycerides Cholesterol Total LDL Cholesterol HDL Cholesterol TSH Urine Color Yellow Urine Appearance Clear Urine pH 6.5 Ur Specific [place] 1.020 Urine Protein Negative Urine Glucose (UA) Negative Urine Ketones Negative Urine Blood Trace-lysed H Urine Nitrite Negative Urine Bilirubin Negative Urine Urobilinogen 0.2 Ur Leukocyte Esterase Negative Urine RBC 2-5 Urine WBC 0-2 Ur Epithelial Cells 1+ Urine Bacteria 1+ 06/15/18 06/15/18 06/16/18 16:30 16:45 04:30 WBC RBC Hgb Hct MCV MCH MCHC RDW Plt Count MPV Absolute Neuts (auto) Neutrophils % Lymphocytes % Monocytes % Eosinophils % Basophils % PT with INR INR PTT (Actin FS) 26.6 Sodium 140 Potassium 4.0 Chloride 106 Carbon Dioxide 27 Anion Gap 7 L BUN 15 Creatinine 0.8 Creat Clearance w eGFR > 60 Random Glucose 96 Calcium 8.5 Phosphorus 3.4 Magnesium 2.2 Total Bilirubin AST ALT Alkaline Phosphatase Creatine Kinase Creatine Kinase Index CK-MB (CK-2) Troponin I 0.09 H Total Protein Albumin Triglycerides 104 118 Cholesterol 241 210 H Total LDL Cholesterol 173 143 H HDL Cholesterol 47 45 TSH 0.87 Urine Color Urine Appearance Urine pH Ur Specific [place] Urine Protein Urine Glucose (UA) Urine Ketones Urine Blood Urine Nitrite Urine Bilirubin Urine Urobilinogen Ur Leukocyte Esterase Urine RBC Urine WBC Ur Epithelial Cells Urine Bacteria 06/16/18 06/16/18 06/16/18 04:30 04:30 11:00 WBC 8.3 RBC 4.29 Hgb 13.2 Hct 37.2 MCV 86.6 MCH 30.7 MCHC 35.4 RDW 13.6 Plt Count 247 MPV 7.8 Absolute Neuts (auto) Neutrophils % Lymphocytes % Monocytes % Eosinophils % Basophils % PT with INR INR PTT (Actin FS) 100.5 H Sodium Potassium Chloride Carbon Dioxide Anion Gap BUN Creatinine Creat Clearance w eGFR Random Glucose Calcium Phosphorus Magnesium Total Bilirubin AST ALT Alkaline Phosphatase Creatine Kinase 356 H Creatine Kinase Index 0.7 CK-MB (CK-2) 2.7 Troponin I 0.05 Total Protein Albumin Triglycerides Cholesterol Total LDL Cholesterol HDL Cholesterol TSH Urine Color Urine Appearance Urine pH Ur Specific [place] Urine Protein Urine Glucose (UA) Urine Ketones Urine Blood Urine Nitrite Urine Bilirubin Urine Urobilinogen Ur Leukocyte Esterase Urine RBC Urine WBC Ur Epithelial Cells Urine Bacteria Assessment/Plan hypothyroidism, hypertension and right breast CA s/p right lumpectomy who presents to the ER with complaints of "feeling like she was going to fall". TNIs positive 1.13 normalized since echo nl ekg sr wnl Plan asa heparin x [address] for risk stratification f/u ekgs and tnis
--- NOTE | 2018-06-16 14:21 | PN ---
Physical Exam: SUBJECTIVE: Patient seen and examined at bedside- no acute events overnight. patient states she is feeling ok still not at her baseline thoug. however, she denies any CP/SOB/N/V fevers or chills OBJECTIVE: Vital Signs Period Temp Pulse Resp BP Sys/Garcia Pulse Ox Last 24 Hr 97.1 F-98.3 F 66-73 16-20 111-176/65-84 95-99 GENERAL: The patient is awake, alert, and fully oriented, in no acute distress. EYES: no scleral icterus. NECK: Trachea midline, full range of motion, supple. LUNGS: CTA B/L; no rales, rhonchi or wheezing. HEART: Regular rate and rhythm, S1, S2 without murmur, rub or gallop. ABDOMEN: Soft, nontender, nondistended, normoactive bowel sounds, no guarding, no rebound, no hepatosplenomegaly, no masses. EXTREMITIES: 2+ pulses, warm, well-perfused, 1+ edema b?l; torturous veins. . SKIN: Warm, dry, normal turgor, no rashes or lesions noted Laboratory Results - last 24 hr 06/15/18 06/15/18 06/15/18 15:55 15:55 15:55 WBC 7.9 RBC 4.82 Hgb 14.4 Hct 43.2 MCV 89.6 MCH 29.9 MCHC 33.4 RDW 12.9 Plt Count 271 MPV 8.4 Absolute Neuts (auto) 5.8 Neutrophils % 71.9 Lymphocytes % 16.8 Monocytes % 8.9 Eosinophils % 1.9 Basophils % 0.5 PT with INR INR PTT (Actin FS) Sodium 133 L Potassium 4.1 D Chloride 103 Carbon Dioxide 24 Anion Gap 6 L BUN 20 H Creatinine 0.8 Creat Clearance w eGFR > 60 Random Glucose 99 Calcium 9.0 Phosphorus Magnesium Total Bilirubin 0.7 AST 23 D ALT 14 Alkaline Phosphatase 59 Creatine Kinase Cancelled Creatine Kinase Index CK-MB (CK-2) Troponin I Cancelled 1.13 H* Total Protein 7.6 Albumin 3.9 Triglycerides Cholesterol Total LDL Cholesterol HDL Cholesterol TSH Urine Color Urine Appearance Urine pH Ur Specific [place] Urine Protein Urine Glucose (UA) Urine Ketones Urine Blood Urine Nitrite Urine Bilirubin Urine Urobilinogen Ur Leukocyte Esterase Urine RBC Urine WBC Ur Epithelial Cells Urine Bacteria 06/15/18 06/15/1806/15/18 15:55 16:04 16:25 WBC RBC Hgb Hct MCV MCH MCHC RDW Plt Count MPV Absolute Neuts (auto) Neutrophils % Lymphocytes % Monocytes % Eosinophils % Basophils % PT with INR 11.5 INR 1.03 PTT (Actin FS) Sodium Potassium Chloride Carbon Dioxide Anion Gap BUN Creatinine Creat Clearance w eGFR Random Glucose Calcium Phosphorus Magnesium Total Bilirubin AST ALT Alkaline Phosphatase Creatine Kinase 287 H Creatine Kinase Index 1.6 CK-MB (CK-2) 4.6 H Troponin I Total Protein Albumin Triglycerides Cholesterol Total LDL Cholesterol HDL Cholesterol TSH Urine Color Yellow Urine Appearance Clear Urine pH 6.5 Ur Specific [place] 1.020 Urine Protein Negative Urine Glucose (UA) Negative Urine Ketones Negative Urine Blood Trace-lysed H Urine Nitrite Negative Urine Bilirubin Negative Urine Urobilinogen 0.2 Ur Leukocyte Esterase Negative Urine RBC 2-5 Urine WBC 0-2 Ur Epithelial Cells 1+ Urine Bacteria 1+ 06/15/18 06/15/18 06/16/18 16:30 16:45 04:30 WBC RBC Hgb Hct MCV MCH MCHC RDW Plt Count MPV Absolute Neuts (auto) Neutrophils % Lymphocytes % Monocytes % Eosinophils % Basophils % PT with INR INR PTT (Actin FS) 26.6 Sodium 140 Potassium 4.0 Chloride 106 Carbon Dioxide 27 Anion Gap 7 L BUN 15 Creatinine 0.8 Creat Clearance w eGFR > 60 Random Glucose 96 Calcium 8.5 Phosphorus 3.4 Magnesium 2.2 Total Bilirubin AST ALT Alkaline Phosphatase Creatine Kinase Creatine Kinase Index CK-MB (CK-2) Troponin I 0.09 H Total Protein Albumin Triglycerides 104 118 Cholesterol 241 210 H Total LDL Cholesterol 173 143 H HDL Cholesterol 47 45 TSH 0.87 Urine Color Urine Appearance Urine pH Ur Specific [place] Urine Protein Urine Glucose (UA) Urine Ketones Urine Blood Urine Nitrite Urine Bilirubin Urine Urobilinogen Ur Leukocyte Esterase Urine RBC Urine WBC Ur Epithelial Cells Urine Bacteria 06/16/18 06/16/18 06/16/18 04:30 04:30 11:00 WBC 8.3 RBC 4.29 Hgb 13.2 Hct 37.2 MCV 86.6 MCH 30.7 MCHC 35.4 RDW 13.6 Plt Count 247 MPV 7.8 Absolute Neuts (auto) Neutrophils % Lymphocytes % Monocytes % Eosinophils % Basophils % PT with INR INR PTT (Actin FS) 100.5 H Sodium Potassium Chloride Carbon Dioxide Anion Gap BUN Creatinine Creat Clearance w eGFR Random Glucose Calcium Phosphorus Magnesium Total Bilirubin AST ALT Alkaline Phosphatase Creatine Kinase 356 H Creatine Kinase Index 0.7 CK-MB (CK-2) 2.7 Troponin I 0.05 Total Protein Albumin Triglycerides Cholesterol Total LDL Cholesterol HDL Cholesterol TSH Urine Color Urine Appearance Urine pH Ur Specific [place] Urine Protein Urine Glucose (UA) Urine Ketones Urine Blood Urine Nitrite Urine Bilirubin Urine Urobilinogen Ur Leukocyte Esterase Urine RBC Urine WBC Ur Epithelial Cells Urine Bacteria Active Medications Generic Name Dose Route Start Last Admin Trade Name Willy PRN Reason Stop Dose Admin Acetaminophen 650 mg 06/16/18 04:46 Tylenol - PO Q6H PRN PAIN LEVEL 1-5 Heparin Sodium (Porcine) 5,000 unit 06/15/18 17:56 Heparin - IVPUSH PRN PRN Heparin Sodium/Dextrose 25,000 units in 500 mls @ 20 mls/hr 06/15/18 18:00 08:50 Heparin Infusion - IVPB 900 units/hr TITR ANAI 18 mls/hr Titration Protocol 1,000 UNITS/HR ASSESSMENT/PLAN: 87 yo female with PMH of HTN, Hypothyroidism, R Breast CA (S/P lumpectomy) admitted with complaint of a fall after not feeling well, positive troponin, no EKG changes. NSTEMI -EKG noted with no ST/Twave abnormalities -Troponin peaked at 1.13 and is downtrending latest being 0.05 -Cardiology consulted -Heparin drip begun for 48 hours -as per cardio will do khushbu scan -echo normal HTN -Norvasc 2.5 mg PO Daily -Elevated in ED to 176/84, currently stable at 152/79 Hypothyroidism -100 mcg Synthroid PO Daily DVT Prophylaxis -On heparin drip FEN -Fluids: None -Electrolytes: No electrolyte abnormalities, BMP in AM -Nutrition: Na controlled diet Problem List - Problems (1) NSTEMI (non-ST elevated myocardial infarction) Code(s): I21.4 - NON-ST ELEVATION (NSTEMI) MYOCARDIAL INFARCTION (2) Hypertension Code(s): I10 - ESSENTIAL (PRIMARY) HYPERTENSION (3) Hypothyroidism Code(s): E03.9 - HYPOTHYROIDISM, UNSPECIFIED Visit type - Emergency Visit Emergency Visit: Yes ED Registration Date: 06/15/18 Care time: The patient presented to the Emergency Department on the above date and was hospitalized for further evaluation of their emergent condition. - New Patient This patient is new to me today: Yes Date on this admission: 06/16/18 - Critical Care Critical Care patient: No
[2018-06-16] MEDS: ACETAMINOPHEN 325 MG TABLET (FP) PO PRN (14:37)
--- NOTE | 2018-06-16 15:57 | PN ---
Teaching Attending Note Name of Resident: Kylie Church ATTENDING PHYSICIAN STATEMENT I saw and evaluated the patient. I reviewed the resident's note and discussed the case with the resident. I agree with the resident's findings and plan as documented with exceptions below. SUBJECTIVE: Patient seen and examined. Feels better. Reports felt weak yesterday and fell on the buttocks, crawled and called EMS. Denies LOC or ever having any chest pain, dizziness, palpitations or dyspnea. OBJECTIVE: Vital Signs Period Temp Pulse Resp BP Sys/Garcia Pulse Ox Last 24 Hr 97.1 F-98.4 F 66-71 16-20 111-176/65-84 95-99 Intake & Output 06/13/18 06/14/18 06/15/18 06/16/18 23:59 23:59 23:59 23:59 Intake Total 516 Balance 516 Weight 165 lb 156 lb General: sitting in bed in no acute distress Chest: good effort, no rales or wheezing Neck: soft, supple, no JVD Abdomen:Soft, obese, NT Extremities: no edema Home Medications Medication Instructions Recorded Acetaminophen [Tylenol Extra 500 mg PO PRN 11/15/16 Strength] Amlodipine Besylate [Norvasc -] 2.5 mg PO DAILY 11/15/16 Levothyroxine [Synthroid -] 100 mcg PO DAILY 11/15/16 Nebivolol HCl [Bystolic] 10 mg DAILY 11/15/16 Methyl Salicylate/Menthol Oint 1 applic TP BID #30 applic 11/19/16 [Analgesic [place] -] Active Medications Acetaminophen (Tylenol -) 650 mg PO Q6H PRN PRN Reason: PAIN LEVEL 1-5 Last Admin: 06/16/18 14:37 Dose: 650 mg Heparin Sodium (Porcine) (Heparin -) 5,000 unit IVPUSH PRN PRN Heparin Sodium/Dextrose (Heparin Infusion -) 25,000 units in 500 mls @ 20 mls/ hr IVPB TITR ANAI; Protocol Last Titration: 06/16/18 08:50 Dose: 900 units/hr, 18 mls/hr Laboratory Results - last 24 hr 06/15/18 06/15/18 06/15/18 15:55 15:55 15:55 WBC 7.9 RBC 4.82 Hgb 14.4 Hct 43.2 MCV 89.6 MCH 29.9 MCHC 33.4 RDW 12.9 Plt Count 271 MPV 8.4 Absolute Neuts (auto) 5.8 Neutrophils % 71.9 Lymphocytes % 16.8 Monocytes % 8.9 Eosinophils % 1.9 Basophils % 0.5 PT with INR INR PTT (Actin FS) Sodium 133 L Potassium 4.1 D Chloride 103 Carbon Dioxide 24 Anion Gap 6 L BUN 20 H Creatinine 0.8 Creat Clearance w eGFR > 60 Random Glucose 99 Calcium 9.0 Phosphorus Magnesium Total Bilirubin 0.7 AST 23 D ALT 14 Alkaline Phosphatase 59 Creatine Kinase Cancelled Creatine Kinase Index CK-MB (CK-2) Troponin I Cancelled 1.13 H* Total Protein 7.6 Albumin 3.9 Triglycerides Cholesterol Total LDL Cholesterol HDL Cholesterol TSH Urine Color Urine Appearance Urine pH Ur Specific Williams Urine Protein Urine Glucose (UA) Urine Ketones Urine Blood Urine Nitrite Urine Bilirubin Urine Urobilinogen Ur Leukocyte Esterase Urine RBC Urine WBC Ur Epithelial Cells Urine Bacteria 06/15/18 06/15/18 06/15/18 15:55 16:04 16:25 WBC RBC Hgb Hct MCV MCH MCHC RDW Plt Count MPV Absolute Neuts (auto) Neutrophils % Lymphocytes % Monocytes % Eosinophils % Basophils % PT with INR 11.5 INR 1.03 PTT (Actin FS) Sodium Potassium Chloride Carbon Dioxide Anion Gap BUN Creatinine Creat Clearance w eGFR Random Glucose Calcium Phosphorus Magnesium Total Bilirubin AST ALT Alkaline Phosphatase Creatine Kinase 287 H Creatine Kinase Index 1.6 CK-MB (CK-2) 4.6 H Troponin I Total Protein Albumin Triglycerides Cholesterol Total LDL Cholesterol HDL Cholesterol TSH Urine Color Yellow Urine Appearance Clear Urine pH 6.5 Ur Specific Williams 1.020 Urine Protein Negative Urine Glucose (UA) Negative Urine Ketones Negative Urine Blood Trace-lysed H Urine Nitrite Negative Urine Bilirubin Negative Urine Urobilinogen 0.2 Ur Leukocyte Esterase Negative Urine RBC 2-5 Urine WBC 0-2 Ur Epithelial Cells 1+ Urine Bacteria 1+ 06/15/18 06/15/18 06/16/18 16:30 16:45 04:30 WBC RBC Hgb Hct MCV MCH MCHC RDW Plt Count MPV Absolute Neuts (auto) Neutrophils % Lymphocytes % Monocytes % Eosinophils % Basophils % PT with INR INR PTT (Actin FS) 26.6 Sodium 140 Potassium 4.0 Chloride 106 Carbon Dioxide 27 Anion Gap 7 L BUN 15 Creatinine 0.8 Creat Clearance w eGFR > 60 Random Glucose 96 Calcium 8.5 Phosphorus 3.4 Magnesium 2.2 Total Bilirubin AST ALT Alkaline Phosphatase Creatine Kinase Creatine Kinase Index CK-MB (CK-2) Troponin I 0.09 H Total Protein Albumin Triglycerides 104 118 Cholesterol 241 210 H Total LDL Cholesterol 173 143 H HDL Cholesterol 47 45 TSH 0.87 Urine Color Urine Appearance Urine pH Ur Specific Williams Urine Protein Urine Glucose (UA) Urine Ketones Urine Blood Urine Nitrite Urine Bilirubin Urine Urobilinogen Ur Leukocyte Esterase Urine RBC Urine WBC Ur Epithelial Cells Urine Bacteria 06/16/18 06/16/18 06/16/18 04:30 04:30 11:00 WBC 8.3 RBC 4.29 Hgb 13.2 Hct 37.2 MCV 86.6 MCH 30.7 MCHC 35.4 RDW 13.6 Plt Count 247 MPV 7.8 Absolute Neuts (auto) Neutrophils % Lymphocytes % Monocytes % Eosinophils % Basophils % PT with INR INR PTT (Actin FS) 100.5 H Sodium Potassium Chloride Carbon Dioxide Anion Gap BUN Creatinine Creat Clearance w eGFR Random Glucose Calcium Phosphorus Magnesium Total Bilirubin AST ALT Alkaline Phosphatase Creatine Kinase 356 H Creatine Kinase Index 0.7 CK-MB (CK-2) 2.7 Troponin I 0.05 Total Protein Albumin Triglycerides Cholesterol Total LDL Cholesterol HDL Cholesterol TSH Urine Color Urine Appearance Urine pH Ur Specific Williams Urine Protein Urine Glucose (UA) Urine Ketones Urine Blood Urine Nitrite Urine Bilirubin Urine Urobilinogen Ur Leukocyte Esterase Urine RBC Urine WBC Ur Epithelial Cells Urine Bacteria 2d Echo results reviewed ASSESSMENT AND PLAN: 87 yof with PMHx of HTN, Hypothyroidism, R Breast CA (S/P lumpectomy) admitted with weakness, mechanical fall and found with elevated troponin -Weakness -Mechanical fall (states sat on floor as felt weak, crawled and called EMS, denies LOC) -Elevated Troponin/NSTEMI, low suspicion for ACS given repeat Trop non concerning and absence of significant WMA on echo -HTN -Hypothroidism -H/o Right breast ca s/p lumpectomy Plan: Cardiology input noted. Heparin drip x 48 hours. For stress MIBI. Hold starting statin given mild CPK elevation. Fall precautions, PT eval, CT head neg Resume bystolic. Resume norvasc based on BP readings. TSH normal, resume levothyroxine PT eval Dispo pending cardiac w/u and clinical improvement. Anticipate in 24-48 hours. Plan discussed with patient and daughter at bedside in detail, all questions answered.
[2018-06-16] MEDS ORDERED: LEVOTHYROXINE NA 75 MCG TABLET (FP) PO ONE (16:02)
[2018-06-16] MEDS: HEPARIN INFUSION - 25,000 UNITS/500 ML INFUS.BAG IVPB SCH (18:17)
[2018-06-17] MEDS: LEVOTHYROXINE NA 75 MCG TABLET (FP) PO SCH (06:55)
[2018-06-17 06:57] LABS: HEMATOCRIT 40.3 % (32.4-45.2); HEMOGLOBIN 12.9 GM/dL (10.7-15.3); MCH 28.3 pg (25.7-33.7); MCHC 31.9 g/dl (32.0-36.0); MEAN CELL VOLUME 88.6 fl (80-96); MEAN PLT VOLUME 8.6 fl (7.5-11.1); PLATELET COUNT 236 K/MM3 (134-434); RBC 4.54 M/mm3 (3.60-5.2); RDW 13.6 % (11.6-15.6); WHITE BLOOD COUNT 7.8 K/mm3 (4.0-10.0)
[2018-06-17 07:40] LABS: ANION GAP 8 MMOL/L (8-16); BLOOD UREA NITROGEN 14 mg/dL (7-18); CALCIUM 7.9 mg/dL (8.5-10.1); CHLORIDE 105 mmol/L (98-107); CO2 25 mmol/L (21-32); CREATININE 0.8 mg/dL (0.55-1.3); GLUCOSE,RANDOM 96 mg/dL (74-106); MAGNESIUM 2.1 mg/dL (1.8-2.4); PHOSPHOROUS 3.3 mg/dL (2.5-4.9); POTASSIUM 3.7 mmol/L (3.5-5.1); SODIUM 138 mmol/L (136-145)
--- NOTE | 2018-06-17 07:50 | PN ---
Teaching Attending Note Name of Resident: Kylie Church ATTENDING PHYSICIAN STATEMENT I saw and evaluated the patient. I reviewed the resident's note and discussed the case with the resident. I agree with the resident's findings and plan as documented with exceptions below. SUBJECTIVE: patient seen and examined. No complaints, doing well. OBJECTIVE: Vital Signs Period Temp Pulse Resp BP Sys/Garcia Pulse Ox Last 24 Hr 97.6 F-98.4 F 58-70 16-20 111-144/58-82 95-98 Intake & Output 06/14/18 06/15/18 06/16/18 06/17/18 23:59 23:59 23:59 23:59 Intake Total 944 416 Balance 944 416 Weight 165 lb 156 lb general: lying in bed in no acute distress chest; CTAB, no rales or wheezing Abdomen:soft, NT Extremities: no edema Home Medications Medication Instructions Recorded Acetaminophen [Tylenol Extra 500 mg PO PRN 11/15/16 Strength] Amlodipine Besylate [Norvasc -] 2.5 mg PO DAILY 11/15/16 Levothyroxine [Synthroid -] 100 mcg PO DAILY 11/15/16 Nebivolol HCl [Bystolic] 10 mg DAILY 11/15/16 Methyl Salicylate/Menthol Oint 1 applic TP BID #30 applic 11/19/16 [Analgesic [place] -] Active Medications Acetaminophen (Tylenol -) 650 mg PO Q6H PRN PRN Reason: PAIN LEVEL 1-5 Last Admin: 06/16/18 14:37 Dose: 650 mg Amlodipine Besylate (Norvasc -) 2.5 mg PO DAILY [facility] Heparin Sodium (Porcine) (Heparin -) 5,000 unit IVPUSH PRN PRN Heparin Sodium/Dextrose (Heparin Infusion -) 25,000 units in 500 mls @ 20 mls/ hr IVPB TITR NAAI; Protocol Last Admin: 06/16/18 18:17 Dose: 900 units/hr, 18 mls/hr Levothyroxine Sodium (Synthroid -) 75 mcg PO DAILY@0700 [facility] Last Admin: 06/17/18 06:55 Dose: 75 mcg Nebivolol (Bystolic -) 5 mg PO DAILY [facility] Laboratory Results - last 24 hr 06/16/18 06/16/18 06/16/18 04:30 11:00 16:00 PTT (Actin FS) 61.7 H Sodium 140 Potassium 4.0 Chloride 106 Carbon Dioxide 27 Anion Gap 7 L BUN 15 Creatinine 0.8 Creat Clearance w eGFR > 60 Random Glucose 96 Calcium 8.5 Phosphorus 3.4 Magnesium 2.2 Creatine Kinase 356 H Creatine Kinase Index 0.7 CK-MB (CK-2) 2.7 Troponin I 0.09 H 0.05 Triglycerides 118 Cholesterol 210 H Total LDL Cholesterol 143 H HDL Cholesterol 45 06/16/18 06/17/18 16:00 05:30 PTT (Actin FS) Sodium 138 Potassium 3.7 Chloride 105 Carbon Dioxide 25 Anion Gap 8 BUN 14 Creatinine 0.8 Creat Clearance w eGFR > 60 Random Glucose 96 Calcium 7.9 L Phosphorus 3.3 Magnesium 2.1 Creatine Kinase Creatine Kinase Index CK-MB (CK-2) Troponin I 0.04 Triglycerides Cholesterol Total LDL Cholesterol HDL Cholesterol 2D echo results reviewed ASSESSMENT AND PLAN: 87 yof with PMHx of HTN, Hypothyroidism, R Breast CA (S/P lumpectomy) admitted with weakness, mechanical fall and found with elevated troponin -Weakness -Mechanical fall (states sat on floor as felt weak, crawled and called EMS, denies LOC) -Elevated Troponin/NSTEMI, low suspicion for ACS given repeat Trop non concerning and absence of significant WMA on echo -HTN -Hypothroidism -H/o Right breast ca s/p lumpectomy Plan: Cardiology input noted. Heparin drip x 48 hours. repeat trop normal, 2d echo with no WMA making ACS less likely. Stress MIBI done, follow up results. Hold starting statin given mild CPK elevation. Fall precautions, CT head neg Resume bystolic. Resume norvasc based on BP readings. TSH normal, resume levothyroxine PT eval rec SNF. Discussed with pateint and daughter, want to re-attempt working with PT before addressing SNF vs home. Patient and daughter prefer that patient be discharged home. Dispo in 24 hours if stress test non concerning for ischemia and disposition arranged. Plan discussed with patient and daughter at bedside in detail, all questions answered. Discussed with case management.
--- NOTE | 2018-06-17 08:38 | PN ---
Physical Exam: SUBJECTIVE: Patient seen and examined at bedside no acute events overnight; patient states she is feeling ok. had some minor back pain yesterday however is no longer having it; she denies any CP/SOB/N/V fevers or chills OBJECTIVE: Vital Signs Period Temp Pulse Resp BP Sys/Garcia Pulse Ox Last 24 Hr 97.6 F-98.4 F 58-70 16-20 111-144/58-82 95-98 GENERAL: The patient is awake, alert, and fully oriented, in no acute distress.. EYES: no scleral icterus NECK: no JVD, no lymphadenopathy LUNGS: CTA B/L; no rales, rhonchi or wheezing. HEART: Regular rate and rhythm, S1, S2 without murmur, rub or gallop. ABDOMEN: Soft, nontender, nondistended, normoactive bowel sounds, no guarding, no rebound, no hepatosplenomegaly, no masses. EXTREMITIES: 2+ pulses, warm, well-perfused, 2+ edema B/L. SKIN: Warm, dry, normal turgor, no rashes or lesions noted Laboratory Results - last 24 hr 06/16/18 06/16/18 06/16/18 04:30 11:00 16:00 WBC RBC Hgb Hct MCV MCH MCHC RDW Plt Count MPV PTT (Actin FS) 61.7 H Sodium Potassium Chloride Carbon Dioxide Anion Gap BUN Creatinine Creat Clearance w eGFR Random Glucose Calcium Phosphorus Magnesium Creatine Kinase 356 H Creatine Kinase Index 0.7 CK-MB (CK-2) 2.7 Troponin I 0.05 Triglycerides 118 Cholesterol 210 H Total LDL Cholesterol 143 H HDL Cholesterol 45 06/16/18 06/17/18 06/17/18 16:00 05:30 05:30 WBC 7.8 RBC 4.54 Hgb 12.9 Hct 40.3 MCV 88.6 MCH 28.3 MCHC 31.9 L RDW 13.6 Plt Count 236 MPV 8.6 D PTT (Actin FS) Sodium 138 Potassium 3.7 Chloride 105 Carbon Dioxide 25 Anion Gap 8 BUN 14 Creatinine 0.8 Creat Clearance w eGFR > 60 Random Glucose 96 Calcium 7.9 L Phosphorus 3.3 Magnesium 2.1 Creatine Kinase Creatine Kinase Index CK-MB (CK-2) Troponin I 0.04 Triglycerides Cholesterol Total LDL Cholesterol HDL Cholesterol Active Medications Generic Name Dose Route Start Last Admin Trade Name Freq PRN Reason Stop Dose Admin Acetaminophen 650 mg 06/16/18 04:46 06/16/18 14:37 Tylenol - PO 650 mg Q6H PRN Administration PAIN LEVEL 1-5 Amlodipine Besylate 2.5 mg 06/17/18 10:00 Norvasc - PO DAILY ANAI Heparin Sodium (Porcine) 5,000 unit 06/15/18 17:56 Heparin - IVPUSH PRN PRN Heparin Sodium/Dextrose 25,000 units in 500 mls @ 20 mls/hr 06/15/18 18:00 18:17 Heparin Infusion - IVPB 900 units/hr TITR ANAI 18 mls/hr Administration Protocol 1,000 UNITS/HR Levothyroxine Sodium 75 mcg 06/17/18 07:00 06/17/18 06:55 Synthroid - PO 75 mcg DAILY@0700 ANAI Administration Nebivolol 5 mg 06/17/18 10:00 Bystolic - PO DAILY ANAI ASSESSMENT/PLAN: 87 yo female with PMH of HTN, Hypothyroidism, R Breast CA (S/P lumpectomy) admitted with complaint of a fall after not feeling well, positive troponin, no EKG changes. NSTEMI -EKG noted with no ST/Twave abnormalities -Troponin peaked at 1.13 and is downtrending latest being 0.04 -Heparin drip begun for 48 hours -khushbu scan ordered for today -echo normal HTN -Norvasc 2.5 mg PO Daily -Bystolic 5mg daily -monitor pressure Hypothyroidism -100 mcg Synthroid PO Daily DVT Prophylaxis -On heparin drip FEN -Fluids: None -Electrolytes: No electrolyte abnormalities, BMP in AM -Nutrition: Na controlled diet disps: possibly SNF Problem List - Problems (1) NSTEMI (non-ST elevated myocardial infarction) Code(s): I21.4 - NON-ST ELEVATION (NSTEMI) MYOCARDIAL INFARCTION (2) Hypertension Code(s): I10 - ESSENTIAL (PRIMARY) HYPERTENSION (3) Hypothyroidism Code(s): E03.9 - HYPOTHYROIDISM, UNSPECIFIED Visit type - Emergency Visit Emergency Visit: Yes ED Registration Date: 06/15/18 Care time: The patient presented to the Emergency Department on the above date and was hospitalized for further evaluation of their emergent condition. - New Patient This patient is new to me today: No - Critical Care Critical Care patient: No
[2018-06-17] MEDS ORDERED: REGADENOSON 0.4 MG/5 ML PRE-FILLED SYRINGE IVPUSH ONE ×3 (08:45→10:34)
[2018-06-17] MEDS ORDERED: NEBIVOLOL 5 MG TABLET (FP) PO SCH (10:00)
--- NOTE | 2018-06-17 10:28 | PN ---
Progress Note, Physician Chief Complaint: Pt without chest pain; awaits stress MIBI today. History of Present Illness: 87y F hx of hypothyroidism, hypertension presents with possible syncope while walking. The patients states she woke up feeling fine this morning, sometime after 1pm (when her doughter left) she started feeling genearlized weakenss. she somehow ended up on the floor - does not recall specifically if she laid down. denies any associated cp, palpitations, ligheahdedess, cough, sob, hemoptysis,, increased leg swelling,a bd pain, back pain. She called EMS herself who sent her to the ED. pt thinks she was down approx 1 hr but is uncertain. currently she is endorsing a mild headche, also endorses slight R arm discomfort. USOH this mrara, ambulating to the restroom, felt like she was going to fall so she sat down slowly denies any lightheadedness, vertigo, cp, sob, palpitations, n/v, nmnbess/ tingling/weakness. f/c, cough, diarrhea, melena/bpr, pt notse mild headache PMD - Current Medication List Current Medications: Active Medications Acetaminophen (Tylenol -) 650 mg PO Q6H PRN PRN Reason: PAIN LEVEL 1-5 Last Admin: 06/16/18 14:37 Dose: 650 mg Amlodipine Besylate (Norvasc -) 2.5 mg PO DAILY [facility] Heparin Sodium (Porcine) (Heparin -) 5,000 unit IVPUSH PRN PRN Heparin Sodium/Dextrose (Heparin Infusion -) 25,000 units in 500 mls @ 20 mls/ hr IVPB TITR ANAI; Protocol Last Admin: 06/16/18 18:17 Dose: 900 units/hr, 18 mls/hr Levothyroxine Sodium (Synthroid -) 75 mcg PO DAILY@0700 [facility] Last Admin: 06/17/18 06:55 Dose: 75 mcg Nebivolol (Bystolic -) 5 mg PO DAILY [facility] Regadenoson (Lexiscan) 0.4 mg IVPUSH ONCE ONE Stop: 06/17/18 10:31 - Objective Vital Signs: Vital Signs Temperature 98.1 F 06/17/18 09:00 Pulse Rate 66 06/17/18 09:00 Respiratory Rate 20 06/17/18 09:00 Blood Pressure 122/58 L 06/17/18 09:00 O2 Sat by Pulse Oximetry (%) 96 06/17/18 09:00 Labs: CBC, BMP 06/17/18 05:30 06/17/18 05:30 INR, PTT INR 1.03 (0.82-1.09) 06/15/18 16:25 Problem List - Problems (1) NSTEMI (non-ST elevated myocardial infarction) Assessment/Plan: 1st TNI 1.1; next levels were normal. called lab to see if initial finding can be rechecked: it was , and was confirmed as being 1.1, and 1.3 when checked less than an hour later using another blood sample. The following morning, TNI was 0.09. R/u transient coronary obstruction; lexiscan stress MIBI pending. EKG: normal study. ECHO: normal LVEF IV heparin: can d/c if Lexiscan results show no significant myocardial injury or ischemia ASA Statin: LDL cholester >170; start atorvastatin 80 mg daily. For stress Lexiscan MIBI today. Code(s): I21.4 - NON-ST ELEVATION (NSTEMI) MYOCARDIAL INFARCTION (2) Syncope Assessment/Plan: f/u orthostatic vital signs Maintatin hydration Carotid artery US ECHO for LVEF, wall motion, r/o thrombus; valve status. TSH Code(s): R55 - SYNCOPE AND COLLAPSE Qualifiers: Syncope type: unspecified Qualified Code(s): R55 - Syncope and collapse (3) Advanced directives, counseling/discussion Code(s): Z71.89 - OTHER SPECIFIED COUNSELING (4) Hypertension Code(s): I10 - ESSENTIAL (PRIMARY) HYPERTENSION (5) Hypothyroidism Assessment/Plan: TSH .87 Code(s): E03.9 - HYPOTHYROIDISM, UNSPECIFIED (6) Osteoarthritis Code(s): M19.90 - UNSPECIFIED OSTEOARTHRITIS, UNSPECIFIED SITE
[2018-06-17] MEDS ORDERED: ATORVASTATIN CA 80 MG TABLET (FP) PO ONE (10:36)
[2018-06-17] MEDS: amLODIPine BESYLATE 2.5 MG TABLET (FP) PO SCH (12:55)
--- NOTE | 2018-06-17 15:52 | EKG ---
Test Reason : Blood Pressure : / mmHG Vent. Rate : 072 BPM Atrial Rate : 072 BPM P-R Int : 168 ms QRS Dur : 088 ms QT Int : 432 ms P-R-T Axes : 024 -05 003 degrees QTc Int : 473 ms NORMAL SINUS RHYTHM NORMAL ECG WHEN COMPARED WITH ECG OF 15-JUN-2018 16:32, NO SIGNIFICANT CHANGE WAS FOUND Confirmed by MARIA FERNANDA ALEMAN MD ([id number]) on 06/17/2018 3:51:58 PM Referred By: TG AMBRIZ DR Confirmed By:MARIA FERNANDA ALEMAN MD
[2018-06-17] MEDS: ACETAMINOPHEN 325 MG TABLET (FP) PO PRN (17:07)
[2018-06-17] MEDS: HEPARIN INFUSION - 25,000 UNITS/500 ML INFUS.BAG IVPB SCH (19:08)
[2018-06-17] MEDS ORDERED: ACETAMINOPHEN 325 MG TABLET (FP) PO ONE (20:30)
[2018-06-18] MEDS: LEVOTHYROXINE NA 75 MCG TABLET (FP) PO SCH (06:20)
[2018-06-18 07:28] LABS: HEMATOCRIT 37.8 % (32.4-45.2); HEMOGLOBIN 13.3 GM/dL (10.7-15.3); MCH 30.7 pg (25.7-33.7); MCHC 35.3 g/dl (32.0-36.0); MEAN CELL VOLUME 87.1 fl (80-96); MEAN PLT VOLUME 8.6 fl (7.5-11.1); PLATELET COUNT 264 K/MM3 (134-434); RBC 4.33 M/mm3 (3.60-5.2); RDW 13.7 % (11.6-15.6); WHITE BLOOD COUNT 7.7 K/mm3 (4.0-10.0)
[2018-06-18 08:04] LABS: ANION GAP 6 MMOL/L (8-16); BLOOD UREA NITROGEN 16 mg/dL (7-18); CALCIUM 7.5 mg/dL (8.5-10.1); CHLORIDE 104 mmol/L (98-107); CO2 27 mmol/L (21-32); CREATININE 0.8 mg/dL (0.55-1.3); GLUCOSE,RANDOM 86 mg/dL (74-106); MAGNESIUM 2.1 mg/dL (1.8-2.4); PHOSPHOROUS 3.7 mg/dL (2.5-4.9); POTASSIUM 3.8 mmol/L (3.5-5.1); SODIUM 137 mmol/L (136-145)
[2018-06-18] MEDS: amLODIPine BESYLATE 2.5 MG TABLET (FP) PO SCH (09:56)
[2018-06-18 10:48] VITALS: BP 172/75; PULSE 62; TEMP 97.7
[2018-06-18] MEDS: ACETAMINOPHEN 325 MG TABLET (FP) PO PRN (12:45)
--- NOTE | 2018-06-18 15:13 | PN ---
Teaching Attending Note Name of Resident: Kylie Church ATTENDING PHYSICIAN STATEMENT I saw and evaluated the patient. I reviewed the resident's note and discussed the case with the resident. I agree with the resident's findings and plan as documented with exceptions below. SUBJECTIVE: Patient seen and examined. Weakness improved, no new chest pain, palpitations, dyspnea or concerns. OBJECTIVE: Vital Signs Period Temp Pulse Resp BP Sys/Garcia Pulse Ox Last 24 Hr 97.4 F-98.8 F 60-70 18-20 136-172/74-76 94-95 Intake & Output 06/15/18 06/16/18 06/17/18 06/18/18 23:59 23:59 23:59 23:59 Intake Total 944 1540 564 Output Total 200 Balance 944 1340 564 Weight 165 lb 156 lb General: sitting in bed in no acute distress Chest: CTAB, no rales or wheezing Abdomen:soft, obese, NT Extremities: no edema Home Medications Medication Instructions Recorded Acetaminophen [Tylenol Extra 500 mg PO PRN 11/15/16 Strength] Amlodipine Besylate [Norvasc -] 2.5 mg PO DAILY 11/15/16 Levothyroxine [Synthroid -] 100 mcg PO DAILY 11/15/16 Nebivolol HCl [Bystolic] 10 mg DAILY 11/15/16 Methyl Salicylate/Menthol Oint 1 applic TP BID #30 applic 11/19/16 [Analgesic [place] -] Laboratory Results - last 24 hr 06/18/18 06/18/18 06/18/18 05:30 05:30 05:30 WBC 7.7 RBC 4.33 Hgb 13.3 Hct 37.8 MCV 87.1 MCH 30.7 MCHC 35.3 RDW 13.7 Plt Count 264 MPV 8.6 PTT (Actin FS) 61.5 H Sodium 137 Potassium 3.8 Chloride 104 Carbon Dioxide 27 Anion Gap 6 L BUN 16 Creatinine 0.8 Creat Clearance w eGFR > 60 Random Glucose 86 Calcium 7.5 L Phosphorus 3.7 Magnesium 2.1 Creatine Kinase 176 Creatine Kinase Index 1.5 CK-MB (CK-2) 2.7 Stress test neg for ischemia ASSESSMENT AND PLAN: 87 yof with PMHx of HTN, Hypothyroidism, R Breast CA (S/P lumpectomy) admitted with weakness, mechanical fall and found with elevated troponin -Weakness -Mechanical fall (states sat on floor as felt weak, crawled and called EMS, denies LOC) -Elevated Troponin/NSTEMI, low suspicion for ACS given repeat Trop non concerning and absence of significant WMA on echo -HTN -Hypothroidism -H/o Right breast ca s/p lumpectomy Plan: Doing well, stress test neg for ischemia. Resume home meds. Advise patient to discuss being started on statin after follow up CPK in 1 week with PCP. Patient declines SNF and wants to go home. Home services arranged. D/c home with VNS/PT with daughter. Plan discussed with patient and daughter in detail, all questions answered.
--- NOTE | 2018-06-18 15:19 | DS ---
Physical Exam: SUBJECTIVE: Patient seen and examined at bedside- no acute events overnight; she is still feeling weak. stress test was negative; she denies any CP/SOB/V fevers or chills. OBJECTIVE: Vital Signs Period Temp Pulse Resp BP Sys/Garcia Pulse Ox Last 24 Hr 97.4 F-98.8 F 60-70 18-20 136-172/74-76 94-95 PHYSICAL EXAM GENERAL: The patient is awake, alert, and fully oriented, in no acute distress. HEAD: Normal with no signs of trauma. EYES: no scleral icterus. NECK: no JHVD LUNGS: CTA B/L; no rales, rhonchi or wheeezing HEART: Regular rate and rhythm, S1, S2 without murmur, rub or gallop. ABDOMEN: Soft, nontender, nondistended, normoactive bowel sounds, no guarding, no rebound, no hepatosplenomegaly, no masses. EXTREMITIES: 2+ pulses, warm, well-perfused, edema. PSYCH: Normal mood, normal affect. SKIN: Warm, dry, normal turgor, no rashes or lesions noted. LABS Laboratory Results - last 24 hr 06/18/18 06/18/18 06/18/18 05:30 05:30 05:30 WBC 7.7 RBC 4.33 Hgb 13.3 Hct 37.8 MCV 87.1 MCH 30.7 MCHC 35.3 RDW 13.7 Plt Count 264 MPV 8.6 PTT (Actin FS) 61.5 H Sodium 137 Potassium 3.8 Chloride 104 Carbon Dioxide 27 Anion Gap 6 L BUN 16 Creatinine 0.8 Creat Clearance w eGFR > 60 Random Glucose 86 Calcium 7.5 L Phosphorus 3.7 Magnesium 2.1 Creatine Kinase 176 Creatine Kinase Index 1.5 CK-MB (CK-2) 2.7 HOSPITAL COURSE: Date of Admission:06/15/18 87 y/.o jayden presneted to [facility] [place] ED with weakness having a presycnopal episode. patient was at home and felt weak so she lowered herself to the ground however she did not fall nor she did she lose consciousness. she was vitally stable opn admission however had a troponin of 1.12 but no ekg changes and no known cardiac histyry. she was started on a hepartrin drip; repeat trops were 0.09, 0.06 and 0.05. she had a stress test which was negative and a normal echo. she was discharged with strict follow up with a data processor. Date of Discharge: 06/18/18 Minutes to complete discharge: 39 Discharge Summary Reason For Visit: SYNCOPE Current Active Problems NSTEMI (non-ST elevated myocardial infarction) (Acute) Syncope (Acute) Condition: Stable - Instructions Diet, Activity, Other Instructions: You came to the emergency room with complaints of weakness and were also found to have an elevated marker of your heart , which has since returned to normal. Please resume all of your home medications -Please follow up with Dr. Ghosh within one week and have your CPK level checked -Please follow up with Dr. Dangelo, the data processor within one week We thought that you would benefit from a short term rehab however, you wished to go home. You are being sent home with visiting nurses services and we advise that you have supervision and assistance with activities at home. You will need to be started on cholesterol medication. Please have the blood work "CPK" with your doctor in 1 week and discuss being started on cholesterol medication if normal. *if you begin to experience any weakness, chest pain, shortness of breath, nausea or vomiting or any new concenrs, please call 911 or return to the emergency room Referrals: Lux Parekh MD [Primary Care Provider] - 1 Week Jorge Dangelo MD [Staff Physician] - 1 Week Disposition: VNS/HOME HEALTH CARE - Home Medications Comprehensive Discharge Medication List: Ambulatory Orders Acetaminophen [Tylenol Extra Strength] 500 mg PO PRN 11/15/16 Amlodipine Besylate [Norvasc -] 2.5 mg PO DAILY 11/15/16 Levothyroxine [Synthroid -] 100 mcg PO DAILY 11/15/16 Nebivolol HCl [Bystolic] 10 mg DAILY 11/15/16 Methyl Salicylate/Menthol Oint [Analgesic [place] -] 1 applic TP BID #30 applic 04/28 Problem List - Problems (1) NSTEMI (non-ST elevated myocardial infarction) Code(s): I21.4 - NON-ST ELEVATION (NSTEMI) MYOCARDIAL INFARCTION (2) Hypertension Code(s): I10 - ESSENTIAL (PRIMARY) HYPERTENSION (3) Hypothyroidism Code(s): E03.9 - HYPOTHYROIDISM, UNSPECIFIED This patient is new to me today: No Emergency Visit: Yes ED Registration Date: 06/15/18 Care time: The patient presented to the Emergency Department on the above date and was hospitalized for further evaluation of their emergent condition. Critical Care patient: No - Discharge Referral Referred to [facility] No
[2018-06-18] MEDS ORDERED: ATORVASTATIN CA 80 MG TABLET (FP) PO SCH (22:00)
== END 2018-06-18 15:32 | disposition home health service (06) | DRG 282 ==
LOC: FER 15:27 → SUPCPDRO 15:27 → J4W 22:30
PROVIDERS: ADMIT Hospitalist; ATTEND Hospitalist
DX: I21.4 Non-ST elevation (NSTEMI) myocardial infarction (principal); I10 Essential (primary) hypertension; E03.9 Hypothyroidism, unspecified; C50.911 Malignant neoplasm of unspecified site of right female breast; Z85.3 Personal history of malignant neoplasm of breast; R55 Syncope and collapse; E78.5 Hyperlipidemia, unspecified; M19.90 Unspecified osteoarthritis, unspecified site; R13.10 Dysphagia, unspecified; Z87.891 Personal history of nicotine dependence
CPT/HCPCS: 36415; 70450-TC; 71045-TC-FY; 78452-TC; 80048; 80053; 80061; 81003; 81015; 82550; 82553; 83721; 83735; 84100; 84443; 84484; 85025; 85027; 85610; 85730; 93005; 93010; 93017; 93306-TC; 93880-TC; 97116-GP; 97162-GP; 99283-25; A9502; J1644; J2785